=== PATIENT | female | born 2000 | race Caucasian/White ===

== ENCOUNTER 2023-11-20 11:51 | Outpatient (OUT) | payer OTHER, SELFPAY ==
[2023-11-20 12:37] LABS: Thyroid Stimulating Hormone 3.913 uIU/mL (0.358-3.740)
[2023-11-20 13:21] LABS: Free T4 0.96 ng/dL (0.76-1.46)
[2023-11-21 16:14] LABS: Thyroglobulin Antibody <1.0 IU/mL (0.0-0.9); Thyroid Peroxidase (TPO) Ab >600 IU/mL (0-34)
== END 2023-11-20 11:52 | disposition home or self-care (01) ==
LOC: LAB 11:56
PROVIDERS: PCP Family Medicine; Visit Provider Family Medicine
DX: R53.83 Other fatigue (principal)
CPT/HCPCS: 36415; 84439; 84443; 86376; 86800

== ENCOUNTER 2023-12-28 20:27 | Outpatient (REF) | payer OTHER, SELFPAY ==
--- OUTSIDE RECORDS SUMMARY | 2023-12-28 20:33 | XMS_ITS | CCD ---
Author Organization [facility] Care Team Providers Care Agricultural Purchasing Agent Name Role Phone JAYY, DR HYATT Attending Unavailable SEN, DR ARELY Jewell Primary Care Unavailable JAYY, DR HYATT Consulting Unavailable JAYY, DR HYATT Admitting Unavailable SEN, DR ARELY Jewell Primary Care Unavailable JAYY, DR HYATT Attending Unavailable JAYY, DR HYATT Consulting Unavailable JAYY, DR HYATT Admitting Unavailable JAYY, DR HYATT Attending Unavailable SEN, DR ARELY Jewell Primary Care Unavailable JAYY, DR HYATT Consulting Unavailable JAYY, DR HYATT Admitting Unavailable ZIEBER, DR DRAKE Cox Consulting Unavailable PAY, DR MARIE Attending Unavailable PAY, DR MARIE Consulting Unavailable PAY, DR MARIE Admitting Unavailable SEN, DR ARELY Jewell Primary Care Unavailable ALYSSA LAURA Consulting Unavailable Sen, Arely Unavailable Allergies Allergy Classification Reported Allergen(s) Allergy Type Date of Onset Reaction(s) Facility (2 sources) patient allergy list reviewed by nurse or physicia Propensity to adverse reactions 9 Comment:Done [employer] Other (2 sources) Allergies Reconciled Propensity to adverse reactions Unknown [employer] Other Medications Current Medications Medication Drug Class(es) Dates Sig (Normalized) Sig (Original) buPROPion hydrochloride 75 mg oral tablet (7 sources) Aminoketone Start: 12-11-2023 Bupropion Hcl Active 75 MG PO Twice daily 60 December 11, 2023 12:00am administer 6 hours apart Start: 11-17-2023 End: 12-11-2023 take 100 mg by mouth twice daily Bupropion Hcl Discontinued 100 MG PO Twice daily November 17, 2023 1:00am December 11, 2023 9:54am take 1 tablet by rosey th twice daily Wellbutrin SR 100 MG 1 tab Orally bid for 90 days Active Norgestimate-Ethinyl Estradiol (12 sources) Progestin, Estrogen Start: 11-17-2023 take 1 tablet by mouth once daily Norgestimate-Ethinyl Estradiol (Estarylla) 0.25-35 mg-mcg tablet Active 1 TAB PO Daily November 17, 2023 1:00am take 1 tablet by rosey every twenty-four hours Estarylla 0.25-35 MG-MCG 1 tablet Orally Once a day Active lamoTRIgine 100 mg oral tablet (12 sources) Mood Stabilizer, Anti-epileptic Agent Start: 11-17-2023 take 100 mg by mouth once daily Lamotrigine Active 100 MG PO Daily November 17, 2023 1:00am take 1 tablet by rosey once daily in the evening lamoTRIgine 100 MG 1 tablet Orally qpm f or 90 days Active lamoTRIgine 25 m g TAKE 1 TABLET AT BEDTIME Active take 2 tablets by mouth at bedti me LaMICtal 25 MG 2 tablets Orally at bedtime for 30 days Active lurasidone hydrochloride 20 mg oral tablet (1 source) Atypical Antipsychotic take 1 tablet by mouth every twenty-four hours Latuda 20 MG 1 tablet in the evening with food Orally Once a day for 30 days Active phentermine hydrochloride 37.5 mg oral capsule (5 sources) Sympathomimetic Amine Anorectic Start: 04-11-20 take 1 capsule by mouth every twenty-four hours Adipex-P 37.5 MG 1 capsule Orally Once a day for 30 days Apr, Active Start: 03-13-2023 take 1 capsule by [facility] every twenty-four hours Adipex-P 37.5 MG 1 capsule Orally Once a day for 30 days Mar, Active Start: 02-13-2023 take 1 capsule by [facility] every twenty-four hours Adipex-P 37.5 MG 1 capsule Orally Once a day for 30 days Feb, Active Completed/Discontinued Medications Medication Drug Class(es) Dates Sig (Normalized) Sig (Original) Drospirenone-Ethin yl Estradiol (1 source) Progestin, Estrogen Start: 12-26-2020 End: 11-17-2023 Drospirenone-Ethin yl Estradiol (Marie) 3-0.03 mg tablet Discontinued 1 TAB PO Daily December 26, 2020 12:00am November 17, 2023 1:19pm FLUoxetine 20 mg oral tablet (1 source) Serotonin Reuptake Inhibitor Start: 12-26-2020 End: 12-30-2020 take 20 mg by mouth once daily Fluoxetine Discontinued 20 MG PO Daily December 26, 2020 12:00am December 30, 2020 11:41am venlafaxine 75 mg oral tablet (1 source) Serotonin and Norepinephrine Reuptake Inhibitor Start: 12-30-2020 End: 11-17-2023 take 75 mg by mouth at bedtime Venlafaxine Discontinued 75 MG PO Bedtime December 30, 2020 12:00am November 17, 2023 1:19pm Problems Active Problems Problem Classification Problem Date Documented Date Episodic/Chronic Abdominal pain (5 sources) Pelvic and perineal pain; Translations: [Unspecified abdominal pain] Onset: 10-12-2021 Episodic Allergic reactions (3 sources) Urticaria, unspecified; Translations: [Urticaria] Episodic Anxiety disorders (20 sources) Posttraumatic stress disorder; Translations: [Post-traumatic stress disorder, unspecified] Chronic Contraceptive and procreative management (3 sources) Surveillance of contraception; Translations: [Encounter for contraceptive management, unspecified] Episodic Diabetes mellitus without complication (15 sources) Hyperglycemia; Translations: [Other abnormal glucose] 11-17-2023 Episodic Immunizations and screening for infectious disease (11 sources) Encounter for screening for infections with a predominantly sexual mode of transmission; Translations: [Sexually transmitted infectious disease] Onset: 05-09-2022 Episodic Malaise and fatigue (16 sources) Fatigue; Translations: [Other fatigue] 11-17-2023 Episodic Menstrual disorders (5 sources) Excessive and frequent menstruation; Translations: [Excessive or frequent menstruation] Onset: 12-04-2017 Chronic Mood disorders (20 sources) Bipolar disorder; Translations: [Bipolar disorder, unspecified] Onset: 12-04-2017 Chronic Other circulatory disease (3 sources) Elevated blood-pressure reading without diagnosis of hypertension; Translations: [Elevated blood-pressure reading, without diagnosis of hypertension] Episodic Other ear and sense organ disorders (2 sources) Infective otitis externa; Translations: [Unspecified infective otitis externa] Onset: 03-12-2018 Chronic Other ear and sense organ disorders (3 sources) Otitis externa of left ear; Translations: [Unspecified otitis externa, left ear] Chronic Other female genital disorders (5 sources) Other specified noninflammatory disorders of vagina; Translations: [OTH SPEC NONINFLAMMATORY D/O VAGINA] Onset: 05-10-2022 Episodic Other female genital disorders (3 sources) Noninflammatory disorder of the vagina; Translations: [Other specified noninflammatory disorders of vagina] Episodic Other nutritional; endocrine; and metabolic disorders (20 sources) Body mass index 40+ - severely obese; Translations: [Body mass index (BMI) 45.0-49.9, adult] Chronic Other nutritional; endocrine; and metabolic disorders (11 sources) Severe obesity; Translations: [Morbid (severe) obesity due to excess calories] Chronic Other nutritional; endocrine; and metabolic disorders (3 sources) Morbid (severe) obesity due to excess calories Chronic Other nutritional; endocrine; and metabolic disorders (1 source) Body mass index (BMI) 45.0-49.9, adult Chronic Other nutritional; endocrine; and metabolic disorders (1 source) Body mass index (BMI) 40.0-44.9, adult Chronic Other nutritional; endocrine; and metabolic disorders (3 sources) Obese class II; Translations: [Body mass index (BMI) 38.0-38.9, adult] Chronic Other nutritional; endocrine; and metabolic disorders (7 sources) Body mass index 30+ - obesity; Translations: [Body mass index (BMI) 39.0-39.9, adult] Chronic Other nutritional; endocrine; and metabolic disorders (8 sources) Obesity caused by energy imbalance; Translations: [Other obesity due to excess calories] 11-17-2023 Chronic Other nutritional; endocrine; and metabolic disorders (2 sources) Other obesity due to excess calories Chronic Other nutritional; endocrine; and metabolic disorders (2 sources) Body mass index (BMI) 39.0-39.9, adult Chronic Other screening for suspected conditions (not mental disorders or infectious disease) (1 source) Thyroid function tests abnormal; Translations: [Other specified abnormal findings of blood chemistry] 11-29-2023 Episodic Other upper respiratory infections (9 sources) Acute maxillary sinusitis; Translations: [Acute recurrent maxillary sinusitis] Onset: 01-13-2015 Episodic Residual codes; unclassified (10 sources) Insomnia; Translations: [Insomnia, unspecified] 11-17-2023 Episodic Residual codes; unclassified (1 source) Insomnia, unspecified Episodic Substance-related disorders (1 source) Nicotine dependence, cigarettes, uncomplicated; Translations: [NICOTINE DEPEND CIGARETTES UNCOMP] Onset: 10-14-2021 Chronic Past or Other Problems Problem Classification Problem Date Documented Da te Episodic/Chronic Conditions associated with dizziness or vertigo (3 sources) Dizziness and giddiness; Translations: [Dizziness and giddiness] Onset: 01-13-2015 Episodic Nausea and vomiting (1 source) Nausea with vomiting, unspecified; Translations: [NAUSEA WITH VOMITING UNSPECIFIED] Onset: 10-14-2021 Episodic Other aftercare (1 source) Other group home (current) drug therapy; Translations: [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 THERAPY] Onset: 10-14-2021 Episodic Other ear and sense organ disorders (2 sources) Acute otitis externa; Translations: [Acute swimmers' ear] Onset: 04-07-2017 Episodic Other gastrointestinal disorders (1 source) Diarrhea, unspecified; Translations: [DIARRHEA UNSPECIFIED] Onset: 10-14-2021 Episodic Other skin disorders (3 sources) Generalized hyperhidrosis; Translations: [Generalized hyperhidrosis] Onset: 03-26-2019 Episodic Results Test Name Value Interpretation Reference Range Facility Laboratory - Chemistry and C hemistry - challengeon 11-20-2023 Free T4 [Mass/Vol] 0.96 ng/dL 0.76-1.46 [facility] TSH Qn 3.913 m[IU]/L 0.358-3.740 [facility] Serum or plasma thyroperoxid ase antibody assay (units/volume)on 11-20-2023 TPO Ab Qn [IU]/mL 0-34 [facility] Thyroglobulin [Mass/volume] in Serum or Plasmaon 11-20-2023 Thyroglobulin [Mass/Vol] <1.0 [IU]/mL 0.0-0.9 [facility] Comment on above: Thyroglobulin Antibo dy measured by Clemente CoulterMethodologyIt should be noted that the presence of thyroglobulinantibodies may not be pathogenic nor diagnostic, especiallyat very low levels. The assay black top spreader machine operator has found thatfour percent of individuals without evidence of thyroiddisease or autoimmunity will have positive TgAb levels upto 4 IU/mL.Performed at: [address], [place], [place] [id number] Director: Mark Brown PhD, Phone: [phone] CHLAMYDIA/GONOCOCCUS CELE ( AB/URINE/PAPon 09-01-2022 Chlamydia trachomatis, CELE Negative Normal Negative [facility] Comment on above: Performed By: #### C T/NGNA #### [facility] [address] [address] [address] Anthony Robert Neisseria gonorrhoeae, CELE Negative Normal Negative [facility] Comment on above: Performed By: #### C T/NGNA #### [facility] [address] [address] [address] Anthony Robert VAGINITIS/VAGINOSIS DNA PROB Randall 08-31-2022 Glendy species Negative Normal Negative [facility] Comment on above: Performed By: #### V AGINT #### [facility] [address] [place] [address] Dr. Anthony Robert Gardnerella vaginalis Negative Normal Negative [facility] Comment on above: Performed By: #### V AGINT #### [facility] [address] [address] [address] Anthony Robert Trichomonas vaginalis Negative Normal Negative [facility] Comment on above: Performed By: #### V AGINT #### [facility] [address] [place] [address] Dr. Anthony Robert US PELVIS AND TRANSVAGon US PELVIS AND TRANSVAG EXAMINATION: US PELVIS AND TRANSVAG HISTORY: Pelvic and perineal pain for 4 months COMPARISON: No relevant comparison available. TECHNIQUE: Transabdominal and transvaginal sonographic examination. FINDINGS: UTERUS: Normal size and appearance. Uterus size: 6.6 x 3.0 x 3.4 cm ENDOMETRIUM: Normal homogeneous appearance. Endometrial thickness: 2 mm RIGHT OVARY: Normal size and appearance. Duplex Doppler demonstrates normal waveform and flow; resistive index 0.5. Ovary size: 2.0 x 1.3 x 1.4 cm LEFT OVARY: Normal size and appearance. Duplex Doppler demonstrates normal waveform and flow; resistive index 0.6. Ovary size: 1.8 x 2.8 x 1.8 cm CUL-DE-SAC: Unremarkable. No significant free fluid. BLADDER: Unremarkable. OTHER: None. IMPRESSION: 1. Normal pelvic ultrasound. No suspicious findings to account for patient's symptoms. Electronically authenticated by: DRAKE WOODY Date: 2022-08-29 22:46 Normal [facility] CHLAMYDIA/GONOCOCCUS CELE (SW AB/URINE/PAPon 05-12-2022 Chlamydia trachomatis, CELE Negative Normal Negative [facility] Comment on above: Performed By: #### C T/NGNA #### [facility] [address] [place] [address] Dr. Anthony Robert Neisseria gonorrhoeae, CELE Negative Normal Negative [facility] Comment on above: Performed By: #### C T/NGNA #### [facility] [address] [place] [address] Dr. Anthony Robert VAGINITIS/VAGINOSIS DNA PROB Randall 05-11-2022 Glendy species Negative Normal Negative [facility] Comment on above: Performed By: #### V AGINT #### [facility] [address] [place] [address] Dr. Anthony Robert Gardnerella vaginalis Negative Normal Negative [facility] Comment on above: Performed By: #### V AGINT #### [facility] [address] [place] [address] Dr. Anthony Robert Trichomonas vaginalis Negative Normal Negative [facility] Comment on above: Performed By: #### V AGINT #### [facility] [address] [place] [address] Dr. Anthony Robert CBC AUTO DIFFon 10-12-2021 BASO # 0.0 103/ul Normal 0.0-0.1 [facility] Comment on above: Performed By: #### C BC #### [facility] [address] [place] [address] Dr. Anthony Robert Basophils/100 WBC (Bld) 0.3 % Normal 0.2-2.0 [facility] Comment on above: Performed By: #### C BC #### [facility] [address] [place] [address] Dr. Anthony Robert EO # 0.2 103/ul Normal 0.0-0.7 [facility] Comment on above: Performed By: #### C BC #### [facility] [address] [place] [address] Dr. Anthony Robert Eosinophils/100 WBC (Bld) 1.9 % Normal 0.9-7.0 [facility] Comment on above: Performed By: #### C BC #### [facility] [address] [place] [address] Dr. Anthony Robert Erythrocyte distribution width (RBC) [Ratio] 12.3 % Normal 11.0-15.0 [facility] Comment on above: Performed By: #### C BC #### [facility] [address] [place] [address] Dr. Anthony Robert Hematocrit (Bld) [Volume fraction] 45.2 % Normal 36.0-48.0 [facility] Comment on above: Performed By: #### C BC #### [facility] [address] [place] [address] Dr. Anthony Robert Hemoglobin (Bld) [Mass/Vol] 14.7 g/dL Normal 12.0-16.0 [facility] Comment on above: Performed By: #### C BC #### [facility] [address] [place] [address] Dr. Anthony Robert IG # 0.03 10e3/ul Normal 0.00-0.03 [facility] Comment on above: Performed By: #### C BC #### [facility] [address] [place] [address] Dr. Anthony Robert IG % 0.3 % Normal 0.0-0.5 [facility] Comment on above: Performed By: #### C BC #### [facility] [address] [place] [address] Dr. Anthony Robert LYMPH # 4.0 103/ul Critically high 1.2-3.8 [facility] Comment on above: Performed By: #### C BC #### [facility] [address] [place] [address] Dr. Anthony Robert Lymphocytes/100 WBC (Bld) 33.6 % Normal 20.5-60.0 [facility] Comment on above: Performed By: #### C BC #### [facility] [address] [place] [address] Dr. Anthony Robert MANUAL DIFF REQ NO Normal [facility] Comment on above: Performed By: #### C BC #### [facility] [address] [place] [address] Dr. Anthony Robert MCH (RBC) [Entitic mass] 27.8 pg Normal 26.7-34.0 [facility] Comment on above: Performed By: #### C BC #### [facility] [address] [place] [address] Dr. Anthony Robert MCHC (RBC) [Mass/Vol] 32.5 g/dL Normal 29.9-35.2 [facility] Comment on above: Performed By: #### C BC #### [facility] [address] [place] [address] Dr. Anthony Robert MCV (RBC) [Entitic vol] 85.6 fL Normal 81.0-99.0 [facility] Comment on above: Performed By: #### C BC #### [facility] [address] [place] [address] Dr. Anthony Robert MONO # 0.6 103/ul Normal 0.3-0.8 [facility] Comment on above: Performed By: #### C BC #### [facility] [address] [place] [address] Dr. Anthony Robert Monocytes/100 WBC (Bld) 5.2 % Normal 1.7-12.0 [facility] Comment on above: Performed By: #### C BC #### [facility] [address] [place] [address] Dr. Anthony Robert NEUT # 6.9 103/ul Critically high 1.4-6.5 [facility] Comment on above: Performed By: #### C BC #### [facility] [address] [place] [address] Dr. Anthony Robert Neutrophils/100 WBC (Bld) 58.7 % Normal 43.0-75.0 [facility] Comment on above: Performed By: #### C BC #### [facility] [address] [place] [address] Dr. Anthony Robert Platelet mean volume (Bld) [Entitic vol] 11.7 fL Normal 9.5-13.5 [facility] Comment on above: Performed By: #### C BC #### [facility] [address] [place] [address] Dr. Anthony Robert PLT 281 103/ul Normal 150-450 [facility] Comment on above: Performed By: #### C BC #### [facility] [address] [place] [address] Dr. Anthony Robert RBC 5.28 106/ul Normal 4.20-5.40 [facility] Comment on above: Performed By: #### C BC #### [facility] [address] [place] [address] Dr. Anthony Robert WBC 11.8 103/ul Critically high 4.0-11.0 [facility] Comment on above: Performed By: #### C BC #### [facility] [address] [place] [address] Dr. Anthony Robert ER URINE PROFILEon 2 Bilirubin Ql (U) Negative Normal NEGATIVE [facility] Comment on above: Performed By: #### E RUR #### [facility] [address] [place] [address] Dr. Anthony Robert Clarity (U) CLEAR Normal CLEAR [facility] Comment on above: Performed By: #### E RUR #### [facility] [address] [place] [address] Dr. Anthony Robert Color (U) YELLOW Normal YELLOW [facility] Comment on above: Performed By: #### E RUR #### [facility] [address] [place] [address] Dr. Anthony ROTHD A micrscopic examina tion will be performed if indicated. Normal [facility] Comment on above: Performed By: #### E RUR #### [facility] [address] [place] [address] Dr. Anthony Robert Glucose Ql (U) Negative Normal NEGATIVE [facility] Comment on above: Performed By: #### E RUR #### [facility] [address] [place] [address] Dr. Anthony Robert Hemoglobin Ql (U) Negative Normal NEGATIVE [facility] Comment on above: Performed By: #### E RUR #### [facility] [address] [place] [address] Dr. Anthony Robert Ketones Ql (U) Negative Normal NEGATIVE [facility] Comment on above: Performed By: #### E RUR #### [facility] [address] [place] [address] Dr. Anthony Robert LEUKOCYTES Negative Normal NEGATIVE [facility] Comment on above: Performed By: #### E RUR #### [facility] [address] [place] [address] Dr. Anthony Robert Nitrite Ql (U) Negative Normal NEGATIVE [facility] Comment on above: Performed By: #### E RUR #### [facility] [address] [place] [address] Dr. Anthony Robert pH (U) 6.0 [pH] Normal 5-9 [facility] Comment on above: Performed By: #### E RUR #### [facility] [address] [place] [address] Dr. Anthony Robert SPEC GRAVITY >=1.030 Abnormal 1.005-<=1.02 5 [facility] Comment on above: Performed By: #### E RUR #### [facility] [address] [place] [address] Dr. Anthony Robert UA PROTEIN Negative Normal NEGATIVE/ TRACE [facility] Comment on above: Performed By: #### E RUR #### [facility] [address] [place] [address] Dr. Anthony Robert UR MICRO IND NOT INDICATED Normal [facility] Comment on above: Performed By: #### E RUR #### [facility] [address] [place] [address] Dr. Anthony Robert Urobilinogen Qn (U) 0.2 {Chaz'U}/dL Normal 0.2 - 1. 0 [facility] Comment on above: Performed By: #### E RUR #### [facility] [address] [address] [address] Anthony Robert LIPASEon 10-12-2021 Lipase [Catalytic activity/Vol] 63.0 U/L Normal 23.0-300.0 [facility] Comment on above: Performed By: #### L IPA, CMP #### [facility] [address] [address] [address] Anthony Robert PREG HCG QUALon 10-12-2021 , QUAL Negative Normal NEGATIVE [facility] Comment on above: Performed By: #### P REG #### [facility] [address] [place] [address] Dr. Anthony Robert PROF 14(COMP METB)on 022 Albumin [Mass/Vol] 4.0 g/dL Normal 3.5-5.0 [facility] Comment on above: Performed By: #### L IPA, CMP ####[facility] [id number] [address]Dr. Anthony Robert Albumin/Globulin [Mass ratio] 1.0 {ratio} Normal [facility] Comment on above: Performed By: #### L IPA, CMP ####[facility] [id number] [address]Dr. Anthony Robert ALP [Catalytic activity/Vol] 81 U/L Normal 38-126 [facility] Comment on above: Performed By: #### L IPA, CMP ####[facility] [id number] [address]Dr. nAthony Robert ALT [Catalytic activity/Vol] 43 U/L Normal 9-52 [facility] Comment on above: Performed By: #### L IPA, CMP ####[facility] [id number] [address]Dr. Anthony Robert Anion gap [Moles/Vol] 14.6 mmol/L Normal [facility] Comment on above: Performed By: #### L IPA, CMP ####[facility] [id number] [address]Dr. Anthony Robert AST [Catalytic activity/Vol] 19 U/L Normal 14-36 [facility] Comment on above: Performed By: #### L IPA, CMP ####[facility] [id number] [place], [place] [address]Dr. Anthony Robert Bilirubin [Mass/Vol] 0.4 mg/dL Normal 0.2-1.3 [facility] Comment on above: Performed By: #### L IPA, CMP ####[facility] [id number] [place], [place] [address]Dr. Anthony Robert Calcium [Mass/Vol] 9.7 mg/dL Normal 8.4-10.2 [facility] Comment on above: Performed By: #### L IPA, CMP ####[facility] B[address] [place], [place] [address]Dr. Anthony Robert Chloride [Moles/Vol] 101 mmol/L Normal 98-107 [facility] Comment on above: Performed By: #### L IPA, CMP ####[facility] Rt[address] [place], [place] [address]Dr. Anthony Robert CO2 [Moles/Vol] 23.7 mmol/L Normal 22.0-30.0 [facility] Comment on above: Performed By: #### L IPA, CMP ####[facility] [address] [place], [place] [address]Dr. Anthony Robert Creatinine [Mass/Vol] 0.85 mg/dL Normal 0.52-1.04 [facility] Comment on above: Performed By: #### L IPA, CMP ####[facility] Wlibeq[address]wc[address] [place], [place] [address]Dr. Anthony Robert EGFR-AF BHUTANESE >60 Normal >=60 [facility] Comment on above: Performed By: #### L IPA, CMP ####[facility] [address] [place], [place] [address]Dr. Anthony Robert EGFR-NON AF BHUTANESE >60 Normal >=60 [facility] Comment on above: Performed By: #### L IPA, CMP ####[facility] Nwtldtal[address] [place], [place] [address]Dr. Anthony Robert Globulin (S) [Mass/Vol] 4.0 g/dL Normal [facility] Comment on above: Performed By: #### L IPA, CMP ####[facility] Ze[address] [place], [place] [address]Dr. Anthony Robert Glucose [Mass/Vol] 96 mg/dL Normal 74-106 [facility] Comment on above: Performed By: #### L IPA, CMP ####[facility] Mrwhjhv[address] [place], [place] [address]Dr. Anthony Robert Potassium [Moles/Vol] 4.3 mmol/L Normal 3.4-5.0 [facility] Comment on above: Performed By: #### L IPA, CMP ####[facility] T[address] [place], [place] [address]Dr. Malikaelle Robert Protein [Mass/Vol] 8.0 g/dL Normal 6.1-8.2 [facility] Comment on above: Performed By: #### L IPA, CMP ####[facility] Q[address] [place], [place] [address]Dr. Anthony Robert Sodium [Moles/Vol] 135 mmol/L Critically low 137-145 [facility] Comment on above: Performed By: #### L IPA, CMP ####[facility] [address] [place], [place] [address]Dr. Anthony Robert Urea nitrogen [Mass/Vol] 12.0 mg/dL Normal 6.4-19.3 [facility] Comment on above: Performed By: #### L IPA, CMP ####[facility] Q[address] [place], [place] [address]Dr. Malikaelle Robert Urea nitrogen/Creatinine [Mass ratio] 14.1 mg/mg Normal [facility] Comment on above: Performed By: #### L IPA, CMP ####[facility] Li[address]os[address] [place], [place] [address]Dr. Anthony Jakob XR KUB 1 VIEWon 10-12-2021 XR KUB 1 VIEW EXAM: XR KUB 1 VIEW HISTORY: Diarrhea and bilateral lower quadrant abdominal pain for one day. COMPARISON: None. TECHNIQUE: Single AP supine view of the abdomen with 2 images, superior and inferior. FINDINGS: Supine technique but no gross free air. Nonobstructing bowel gas pattern with mild to moderate retained stool in the colon. No definite renal stones. No acute bony process. IMPRESSION: No bowel obstruction or free air. Scattered areas of retained stool. Electronically authenticated by: ALYSSA LAURA Date: 2021-10-12 18:28 Normal [facility] ECG 12 lead ECGon 12-27-2020 ECG 12 lead ECG [facility] [place] [address] Electrocardiograph Report Signed Patient: Alondra Ruiz MR#: [id number] : 2000 Acct:[id number] Age/Sex: 20 / F ADM Date: 12/26/20 Loc: Room: [address] [place] [address] Type: ADM IN Attending Dr: Ishan Fischer MD Ordering Provider: Donovan Fischer MD Date of Service: 12/27/20 ECG/ECG 12 lead ECG: PROZAC overdose Copies to: Test Reason : Blood Pressure : / mmHG Vent. Rate : 065 BPM Atrial Rate : 065 BPM P-R Int : 188 ms QRS Dur : 088 ms QT Int : 422 ms P-R-T Axes : 036 088 003 degrees QTc Int : 438 ms Normal sinus rhythm Possible Inferior infarct , age undetermined -minimal criteria Abnormal ECG No previous ECGs available Confirmed by FRANK CALDERÓN DO ([id number]) on 12/27/2020 5:09:44 PM Referred By: Electronically Signed By:FRANK CALDERÓN DO Transcribed By: MUS Dictated By: Frank Calderón DO 12/27/20 0751 Signed By: 12/27/20 170 Normal [facility] Lipid Panelon 12-27-2020 Cholesterol [Mass/Vol] 178 mg/dL Normal 140-200 [facility] Comment on above: Result Comment: Chol less than 200 mg/dl low risk Chol 201-239 mg/dl borderline risk Chol 240 mg/dl and greater high risk Performed By: #### L IPID, TSH3 wRFLX, [id number] #### [facility] [address] Cholesterol in HDL [Mass/Vol] 47 mg/dL Normal 35-85 [facility] Comment on above: Result Comment: HDL CHOL ATP-III CLASSIFICATION Cardiovascular Risk HDL > or equal to 60 mg/dL LOW HDL < 40 mg/dL HIGH Performed By: #### L IPID, TSH3 wRFLX, [id number] #### [facility] [address] Cholesterol.total/C holesterol in HDL [Mass ratio] 3.8 {ratio} Normal <5.0 [facility] Comment on above: Performed By: #### L IPID, TSH3 wRFLX, [id number] #### [address] LDL Cholesterol,Calcula flaco 110 mg/dL High 0-100 [facility] Comment on above: Result Comment: LDL ATP III CLASSIFICATION LDL less than 100 mg/dL Optimal LDL 100-129 mg/dL Near or above optimal LDL 130-159 mg/dL Borderline high LDL 160-189 mg/dL High LDL greater than 189 mg/dL Very high Performed By: #### L IPID, TSH3 wRFLX, [id number] #### [address] Triglyceride w/Reflex 105 mg/dL Normal 35-149 [facility] Comment on above: Result Comment: TRIG ATP III CLASSIFICATION TRIG less than 150 mg/dL Normal TRIG 150-199 mg/dL Borderline high TRIG 200-500 mg/dL High TRIG greater than 500 mg/dL Very high Standard traceable to the Center for Disease Conrtrol and Prevention (CDC) test method. Performed By: #### L IPID, TSH3 wRFLX, [id number] #### [address] VLDL CHOLESTEROL 21 mg/dL Normal [facility] Comment on above: Performed By: #### L IPID, TSH3 wRFLX, [id number] #### [address] Thyroid Stim Hormone w/Rflxo n 12-27-2020 Thyroid Stim Hormone w/Rflx 2.68 u[iU]/mL Normal 0.45-5.33 [facility] Comment on above: Performed By: #### L IPID, TSH3 wRFLX, [id number] #### [facility] [address] [place] [address] [facility] Vitamin D 25 Hydroxy Totalon 12-27-2020 Vitamin D 25 Hydroxy Total 27.7 ng/mL Low 30-100 [facility] Comment on above: Result Comment: NANCY MIN D STATUS 25(OH)VITAMIN D RANGE (ng/mL) Deficient <20 Insufficient 20 to <30 Sufficient 30 to 100 Reference: Cierra MF,Emma CARIAS, Julianne MACIAS, et al. Evaluation,treatment, and prevention of vitamin D deficiency; an Endocrine Society clinical practice guideline. JCEM. 2010; 96(7):1911-30. PERFORMED BY: [place] [id number] PATHOLOGIST SLASHER OPERATOR RYAN SCHREIBER M.D. Performed By: #### L IPID, TSH3 wRFLX, [id number] #### [facility] [address] [place] [address] [facility] Vital Signs Date Time Vital Sign Value Performing Clinician Facility 12-11-2023 09:38-0400 Body height 167.64 cm [facility] 12-11-2023 09:38-0400 Body mass index (BMI) [Ratio] 37.5 kg/m2 [facility] 12-11-2023 09:38-0400 Body weight 105.46 kg [facility] 12-11-2023 09:38-0400 Diastolic blood pressure 82 mm[Hg] [facility] 12-11-2023 09:38-0400 Heart rate 81 /min [facility] 12-11-2023 09:38-0400 Systolic blood pressure 123 mm[Hg] [facility] 11-20-2023 11:01-0400 Body height 167.64 cm [facility] 11-20-2023 11:01-0400 Body mass index (BMI) [Ratio] 37.6 kg/m2 [facility] 11-20-2023 11:01-0400 Body weight 105.8 kg [facility] 11-20-2023 11:01-0400 Diastolic blood pressure 88 mm[Hg] [facility] 11-20-2023 11:01-0400 Heart rate 88 /min [facility] 11-20-2023 11:01-0400 SaO2% (BldA) [Mass fraction] 99 % [facility] 11-20-2023 11:01-0400 Systolic blood pressure 126 mm[Hg] [facility] 08-07-2023 09:15-0500 Body height 167.64 cm Arely Sen Other [facility] [employer] Other 08-07-2023 09:15-0500 Body mass index (BMI) [Ratio] 36.7 kg/m2 Arely Sen Other [employer] Other 08-07-2023 09:15-0500 Body weight 103.15 kg Arely Sen Other [employer] Other 08-07-2023 09:15-0500 Diastolic blood pressure 89 mm[Hg] Arely Sen Other [employer] Other 08-07-2023 09:15-0500 Systolic blood pressure 134 mm[Hg] Arely Sen Other [employer] Other 05-08-2023 08:45-0400 Body height 167.64 cm Arely Sen Other [employer] Other 05-08-2023 08:45-0400 Body mass index (BMI) [Ratio] 39.22 kg/m2 Arely Sen Other [employer] Other 05-08-2023 08:45-0400 Body weight 110.22 kg Arely Sen Other [employer] Other 05-08-2023 08:45-0400 Diastolic blood pressure 89 mm[Hg] Arely Sen Other [employer] Other 05-08-2023 08:45-0400 Systolic blood pressure 133 mm[Hg] Arely Sen Other [employer] Other 04-17-2023 11:00-0400 Body height 167.64 cm Arely Sen Other [employer] Other 04-17-2023 11:00-0400 Body mass index (BMI) [Ratio] 39.7 kg/m2 Arely Sen Other [employer] Other 04-17-2023 11:00-0400 Body weight 111.59 kg Arely Sen Other [employer] Other 04-17-2023 11:00-0400 Diastolic blood pressure 94 mm[Hg] Arely Sen Other [employer] Other 04-17-2023 11:00-0400 Systolic blood pressure 134 mm[Hg] Arely Sen Other [employer] Other 03-13-2023 10:00-0400 Body height 160.66 cm Arely Sen Other [employer] Other 03-13-2023 10:00-0400 Body mass index (BMI) [Ratio] 44.46 kg/m2 Arely Sen Other [employer] Other 03-13-2023 10:00-0400 Body weight 114.76 kg Arely Sen Other [employer] Other 03-13-2023 10:00-0400 Diastolic blood pressure 91 mm[Hg] Arely Sen Other [employer] Other 03-13-2023 10:00-0400 Systolic blood pressure 127 mm[Hg] Arely Sen Other [employer] Other 02-13-2023 10:00-0400 Body height 160.66 cm Arely Sen Other [employer] Other 02-13-2023 10:00-0400 Body mass index (BMI) [Ratio] 47.09 kg/m2 Arely Sen Other [employer] Other 02-13-2023 10:00-0400 Body weight 121.56 kg Arely Sen Other [employer] Other 02-13-2023 10:00-0400 Diastolic blood pressure 79 mm[Hg] Arely Sen Other [employer] Other 02-13-2023 10:00-0400 Systolic blood pressure 134 mm[Hg] Arely Sen Other [employer] Other Encounters Encounter Date Encounter Type Care Provider Facility Start: 12-11-2023 End: 12-11-2023 ambulatory [facility] Work Phone: Start: 12-11-2023 End: 12-11-2023 Patient encounter procedure [facility] Work Phone: Start: 11-20-2023 End: 11-20-2023 Patient encounter procedure [facility] Work Phone: Start: 10-17-2023 End: 10-17-2023 ambulatory Arely Sen Other [employer] Other Start: 10-17-2023 Telephone encounter Arely Sen [facility] Start: 10-16-2023 End: 10-16-2023 ambulatory Arely Sen Other [employer] Other Start: 10-16-2023 Telephone encounter Arely Sen [facility] Start: 09-13-2023 End: 09-13-2023 ambulatory Arely Sen Other [employer] Other Start: 09-13-2023 Telephone encounter Arely Sen [facility] Start: 08-08-2023 End: 08-08-2023 ambulatory Arely Sen Other [employer] Other Start: 08-08-2023 Telephone encounter Arely Sen [facility] Start: 08-07-2023 End: 08-07-2023 ambulatory Arely Sen Other [employer] Other Start: 08-07-2023 Office outpatient vi sit 15 minutes Arely Sen [facility] Start: 05-08-2023 End: 05-08-2023 ambulatory Arely Sen Other [employer] Other Start: 05-08-2023 Office outpatient vi sit 15 minutes Arely Sen [facility] Start: 04-17-2023 End: 04-17-2023 ambulatory Arely Sen Other [employer] Other Start: 04-17-2023 Office outpatient vi sit 15 minutes Arely Sen [facility] Start: 04-10-2023 End: 04-10-2023 ambulatory Arely Sen Other [employer] Other Start: 04-10-2023 Telephone encounter Arely Sen [employer] Start: 03-13-2023 End: 03-13-2023 ambulatory Arely Carmen Other [employer] Other Start: 03-13-2023 Office outpatient vi sit 15 minutes Arely Sen [facility] Start: 02-13-2023 End: 02-13-2023 ambulatory Arely Sen Other [employer] Other Start: 02-13-2023 Office outpatient vi sit 15 minutes Arely Sen [facility] Start: 08-29-2022 End: 08-29-[address] ARELY SEN Facility:[facility] Start: 08-29-2022 End: 08-30-[address] OLENA HOPE Facility:[facility] Start: 07-06-2022 Child [facility] medical examination Arely Sen Other [employer] Other Start: 05-09-2022 End: 05-09-[address] OLENA HOPE Facility:[facility] Start: 10-12-2021 End: 10-12-[address] FRANK SUNG Facility:[facility] Start: 09-09-2019 Well child visit Arely Sen Other [employer] Other Plan of Treatment Date Care Activity Detail Author Start: 12-11-2023 Patient referral [facility] Work Phone: Patient referral [facility] Work Phone: [facility] Immunizations Immunization Date Immunization Notes Care Provider [facility] 03-24-2020 meningococcal oligosaccharide (groups A, C, Y and W-135) diphtheria toxoid conjugate vaccine (MCV4O) Arely Sen Other [facility] Payers Date Payer Category Payer Unknown [id number] [id number] [id number] 2002 Unknown [id number] 2.16.84 [id number] 2002 Unknown [id number] [id number] [id number] 2002 Unknown [id number] [id number] [id number] 1959 Unknown [id number] Self-pay Self Pay [id number] Social History Date Type Detail Facility Unknown if ever smoked [employer] Other Sex Assigned At Sex Assigned At Bir th [employer] Other Start: 08-07-2023 Tobacco smoking status NHIS Never smoked tobacco (finding) [facility] Start: 2000 Sex Assigned At Female F [facility] Clinical Notes 02-13-2023 to 10-17-2023 Note Date & Type Note Facility 10-17-2023 Evaluation note Encounter Date Diagnosis Assessment Notes Oct, Anxiety and depression (ICD-10 - F41.9) [facility] Other 02-05-2024 Evaluation note* Encounter Date Diagnosis Assessment Notes Treatment Notes Treatment Clinical Notes Oct, Anxiety and depression (ICD-10 - F41.9) [facility] Other 01-03-2024 Evaluation note* Encounter Date Diagnosis Assessment Notes Treatment Notes Treatment Clinical Notes Sep, Anxiety and depression (ICD-10 - F41.9) [facility] Other 11-28-2023 Evaluation note* Encounter Date Diagnosis Assessment Notes Treatment Notes Treatment Clinical Notes Jul, Bipolar disease, chronic (ICD-10 - F31.9) [facility] Other 11-27-2023 Evaluation note* Encounter Date Diagnosis Assessment Notes Treatment Notes Treatment Clinical Notes Jul, Anxiety and depression (ICD-10 - F41.9) Alondra requests to start wellbutren for BR[place], smoking and SAD. Start bid, lowest dose. Call in 1 month if no improvement on this dose. Jul, Bipolar disease, chronic (ICD-10 - F31.9) Pt agrees to increase lamictal to help with insomnia and overall mood issues. Call if any adverse effects. [employer] Other 08-28-2023 Evaluation note* Encounter Date Diagnosis Assessment Notes Treatment Notes Treatment Clinical Notes Apr, Other obesity due to excess calories (ICD-10 - E66.09) Good progress over 3-4 months. Discussed the diet and exercise changes she has made. Due to insomnia, which has been a problem for her in the past, would refrain from adipex and continue healthy diet and exercise program. Apr, Body mass index [BMI] 39.0-39.9, adult (ICD-10 - Z68.39) Apr, Anxiety and depression (ICD-10 - F41.9) Stable on present meds. Referral pending to . Apr, Insomnia, unspecified type (ICD-10 - G47.00) Several causes. Discussed limiting screen time, regular bedtime and healthy sleep habits. D/c adipex. [employer] Other 08-07-2023 Evaluation note* Encounter Date Diagnosis Assessment Notes Treatment Notes Treatment Clinical Notes Apr, Other obesity due to excess calories (ICD-10 - E66.09) Patient has clearly made a good nicole effort for several months on her own to lose weight with little success. Pt to start Adipex daily. Medication is a stimulant. May cause you to be jittery or constipated. Take in the morning, may also take stool softener daily as needed. Continue to eat a healthy well balanced diet and continue work-out regimine. Pt aware that this is not a cure for obesity but a tool used to help them during their weight loss plateau. Pt aware that they need to continue to work hard at weight loss or the weight will be regained. Side effects discussed and understood. Pt education printed and discussed. Pt notified of prescribing schedule with 30 day dispensing, no refills, for up to 12 weeks, with a 6 month break in-between treatments. Id SOB, CP, mood changes, tachycardia, HTN, headaches, blurred vision occur, go to ER and Follow-up with me immediately. Apr, Body mass index [BMI] 39.0-39.9, adult (ICD-10 - Z68.39) Apr, Bipolar disease, chronic (ICD-10 - F31.9) Pt states she is doing fine since d/c Latuda at last OV. Feels she is stable with the mood stablizer. She is hopeful she will continue w weight loss since d/c latuda as well. [employer] Other 07-31-2023 Evaluation note* Encounter Date Diagnosis Assessment Notes Treatment Notes Treatment Clinical Notes Mar, Morbid (severe) obesity due to excess calories (ICD-10 - E66.01) [employer] Other 07-03-2023 Evaluation note* Encounter Date Diagnosis Assessment Notes Treatment Notes Treatment Clinical Notes Mar, Morbid (severe) obesity due to excess calories (ICD-10 - E66.01) Patient has clearly made a good nicole effort for several months on her own to lose weight with little success. Pt to continue Adipex daily for third month. Medication is a stimulant. May cause you to be jittery or constipated. Take in the morning, may also take stool softener daily as needed. Continue to eat a healthy well balanced diet and continue work-up regimine. Pt aware that this is not a cure for obesity but a tool used to help them during their weight loss plateau. Pt aware that they need to continue to work hard at weight loss or the weight will be regained. Side effects discussed and understood. Any onset of SOB, CP, mood changes, tachycardia, HTN, headaches, blurred vision occur, go to ER and Follow-up with our office immediately. Mar, Body mass index [BMI] 40.0-44.9, adult (ICD-10 - Z68.41) Mar, Anxiety and depression (ICD-10 - F41.9) Pt understands latuda that could cause weight gain. On lowest dose. would like to stop it and followup if issues related to stopping that. [employer] Other 06-05-2023 Evaluation note* Encounter Date Diagnosis Assessment Notes Treatment Notes Treatment Clinical Notes Feb, Bipolar disease, chronic (ICD-10 - F31.9) Refilled present meds and referal to [facility]. Feb, PTSD (post-traumatic stress disorder) (ICD-10 - F43.10) as above Feb, Morbid (severe) obesity due to excess calories (ICD-10 - E66.01) Patient has clearly made a good nicole effort for several months on her own to lose weight with little success. Pt to start Adipex daily. Medication is a stimulant. May cause you to be jittery or constipated. Take in the morning, may also take stool softener daily as needed. Continue to eat a healthy well balanced diet and continue work-out regimine. Pt aware that this is not a cure for obesity but a tool used to help them during their weight loss plateau. Pt aware that they need to continue to work hard at weight loss or the weight will be regained. Side effects discussed and understood. Pt education printed and discussed. Pt notified of prescribing schedule with 30 day dispensing, no refills, for up to 12 weeks, with a 6 month break in-between treatments. Id SOB, CP, mood changes, tachycardia, HTN, headaches, blurred vision occur, go to ER and Follow-up with me immediately Cautioned about possiblity of stimulant increasing possible manic symptoms. Alondra understands and agrees to proceed w med. Feb, Body mass index [BMI] 45.0-49.9, adult (ICD-10 - Z68.42) [employer] Other [facility] [employer] Other Evaluation note* Diagnosis Onset Date Resolution Status Fatigue acute Anxiety and depression acute Bipolar disease, chronic acu te [facility] Work Phone: History general Narrative - Reported* Type Description Date Medical History Fatigue Medical History Elevated glucose Medical History Anxiety and depression Surgical History TONSILLECTOMY AND ADENOIDECTOMY Hospitalization History SEE SURGICAL HX [employer] [facility] [employer] Other Hospital Discharge instructionsAmbulatory Orders* Referral to Psychiatry Time Frame: 12/11/23, Location: None Selected [facility] Work Phone: Summary Purpose Family History No Family History Records FoundNo Family History Records Found Advance Directives Advance Directive Response Recorded Date/ Time Advance Directives No December 26, 2 021 9:13pm Reason for Referral Reason Vashti Brambila CNP - [facility] - previously seeing office in [place]. Presently stable on meds. Bipolar depression and PTSD. Diagnosis 1 Bipolar disease, chr onic (F31.9) Referral Organization [facility] Referring Provider First Name Arely Referring Provider Last Name Carmen Referring Provider Specialty Family [facility] Referred Organization [facility] ice Referred Address [address] [place], [place],[address] Referred Provider Specialty Psychiatry Referral Priority Routine Chief Complaint and Reason for Visit Chief Complaint Check Up changes in medication Reason for Visit Fatigue Anxiety and depression Bipolar disease, chronic Additional Source Comments INFORMATION SOURCE (unrecogn ized section and content) DATE CREATED AUTHOR 09/26/2021 [facility] DATE CREATED AUTHOR AUTHOR'S ORGANIZ ATION 09/02/2022 [facility] REASON FOR VISIT (unrecogniz ed section and content) weight loss options, medicat ion disscussion1 month Follow upPsych Referral Updatemessage1 month Follow up1 month Follow upDISCUSS MEDICATIONrefillmessagerefillNo Information Care Teams (unrecognized sec tion and content) Team Status: Active Member Role Status Dates Arely Sen MD Primary Care Provider Active Team Status: Inactive Member Role Status Dates Arely Sen MD Primary Care Provide r, Attending Provider Active Start: November 20, 2023 End: November 20, 2023 Team Status: Inactive Member Role Status Dates Arely Sen MD Primary Care Provide r, Attending Provider Active Start: December 11, 2023 End: December 11, 2023 Goals (unrecognized section and content) Goals may be documented in a n alternate section FOR RECORDS PERTAINING TO PATIENTS WHO ARE OR HAVE BEEN ENROLLED IN A CHEMICAL DEPENDENCY/SUBSTANCEABUSE PROGRAM, SOME INFORMATION MAY BE OMITTED. This clinical summary was aggregated from multiple sources. Caution should be exercised in using it in the provision of clinical care. This summary normalizes information from multiple sources, and as a consequence, information in this document may materially change the coding, format and clinical context of patient data. In addition, data may be omitted in some cases. CLINICAL DECISIONS SHOULD BE BASED ON THE PRIMARY CLINICAL RECORDS. [facility] [email or web address] provides no warranty or guarantee of the accuracy or completeness of information in this document.
[2024-01-03 11:11] LABS: Age Gdln ACOG Testing Note (.); IGP, rfx Aptima HPV ASCU Note (.)
== END 2023-12-28 20:28 | disposition home or self-care (01) ==
LOC: LAB 20:27
PROVIDERS: PCP Family Medicine; Visit Provider Obstetrics & Gynecology
DX: Z01.419 Encounter for gynecological examination (general) (routine) without abnormal findings (principal)
CPT/HCPCS: G0145

== ENCOUNTER 2025-05-21 15:02 | Outpatient (REF) | payer OTHER, SELFPAY ==
--- OUTSIDE RECORDS SUMMARY | 2025-05-21 10:00 | XMS_ITS | Encounter Summary ---
Author Organization [facility] Address [address] [place] [address] Care Team Providers Care Communications Programmer Name Role Phone Arely Morales MD Primary Care Provider [phone] Stu Bowers MD Unavailable [phone] Reason for Visit * Reason Comments Well Women Visit Encounter Details Date Type Department Care Team (Latest Contact Info) Description 05/21/2025 10:00 AM EDT Procedure Visit [facility] [address] [place] [address] Franca Lynn, ELOY [address] [place] [address] Well woman exam with routine gynecological exam; STD exposure; Vaginal itching Social History Tobacco Use Types Packs/Day Years Used Date Smoking Tobacco: Never Smokeless Tobacco: Never Alcohol Use Standard Drinks/Week Comments Never 0 (1 standard drink = 0.6 oz pur e alcohol) Comments No Sex and Gender Information Value Date Recorded Sex Assigned at Female 08/29/2023 7:23 AM EST Legal Sex Female 7:02 PM EDT Gender Identity Female 08/29/2023 7:23 AM EST Sexual Orientation Bisexual 08/29/2023 7: 23 AM EST documented as of this encounter Last Filed Vital Signs Vital Sign Reading Time Taken Comments Blood Pressure 110/82 05/21/2025 10:19 AM EDT Pulse - - Temperature - - Respiratory Rate - - Oxygen Saturation - - Inhaled Oxygen Concentration - - Weight 92.9 kg (204 lb 12 oz) 05/21/2025 10:19 A M EDT Height - - Body Mass Index 33.05 01/13/2025 9:41 AM EDT documented in this encounter Progress Notes * CINDY Simon - 05/21/2025 10:00 AM EDT Reason for Appointment: Patient ID: Alondra Ruiz is a 24 y.o. female who presents for Well Women Visit Patient presents today for Annual Exam. MEDICATIONS Current Outpatient Medications Medication Instructions amphetamine-dextroamphetamine XR (Adderall XR) 30 MG 24 hr capsule 30 mg, Daily amphetamine-dextroamphetamine XR (Adderall XR) 5 MG 24 hr capsule TAKE ONE CAPSULE A DAY, TAKE WITH30 MG DOSE FOR TOTAL 35 MG ARIPiprazole (ABILIFY) 2 mg, Nightly busPIRone (BUSPAR) 10 mg, 3 times daily cetirizine (ZYRTEC) 10 mg, Nightly Estarylla 0.25-35 MG-MCG tablet 1 tablet, Oral, Daily hydrOXYzine HCl (ATARAX) 10 mg, 2 times daily PRN lamoTRIgine (LaMICtal) 200 MG tablet 1 tablet, Daily lamoTRIgine (LaMICtal) 25 MG tablet TAKE TWO TABLETS ONE TIME A DAY ALLERGIES No Known Allergies PROBLEMS Active Ambulatory Problems Diagnosis Date Noted Anxiety state 10/31/2024 Bipolar 2 disorder, major depressive episode (HCC) 10/31/2024 Class 2 obesity 10/31/2024 Depression 10/31/2024 Mixed anxiety and depressive disorder 10/31/2024 Dizziness 10/31/2024 Fatigue 10/31/2024 Hyperglycemia 10/31/2024 Hyperhidrosis 10/31/2024 Menorrhagia 10/31/2024 Otitis externa of left ear 10/31/2024 Resolved Ambulatory Problems Diagnosis Date Noted No Resolved Ambulatory Problems Past Medical History: Diagnosis Date ADHD (attention deficit hyperactivity disorder) Anxiety and depression BMI 38.0-38.9,adult Elevated glucose Encounter for control Gallo's disease Otitis externa, left HISTORY PAST MEDICAL HISTORY SOCIAL HISTORY Past Medical History: Diagnosis Date ADHD (attention deficit hyperactivity disorder) Anxiety and depression Anxiety state BMI 38.0-38.9,adult Depression Dizziness Elevated glucose Encounter for control Fatigue Gallo's disease Hyperhidrosis Menorrhagia Otitis externa, left Social History Tobacco Use Smoking status: Never Smokeless tobacco: Never Substance Use Topics Alcohol use: Never Drug use: Never FAMILY HISTORY No family history on file. SURGICAL HISTORY Past Surgical History: Procedure Laterality Date ADENOIDECTOMY TONSILLECTOMY REVIEW OF SYSTEMS Review of Systems: Review of Systems Constitutional: Negative. HENT: Negative. Eyes: Negative. Respiratory: Negative. Cardiovascular: Negative. Gastrointestinal: Negative. Genitourinary: Negative. Musculoskeletal: Negative. Skin: Negative. Neurological: Negative. All other systems reviewed and are negative. Hematological: Negative. Endocrine: Negative. Allergic/Immunologic: Negative. OBJECTIVE Objective: Physical Exam Constitutional: Appearance: Normal appearance. She is well-developed. Genitourinary: Vulva normal. Right Adnexa: not tender and no mass present. Left Adnexa: not tender and no mass present. No cervical discharge. Breasts: Breasts are soft. Right: Normal. Left: Normal. HENT: Head: Normocephalic. Nose: Nose normal. Mouth/Throat: Mouth: Mucous membranes are moist. Cardiovascular: Rate and Rhythm: Normal rate and regular rhythm. Pulmonary: Effort: Pulmonary effort is normal. Breath sounds: Normal breath sounds. Abdominal: General: Bowel sounds are normal. There is no distension. Palpations: Abdomen is soft. Tenderness: There is no abdominal tenderness. There is no guarding or rebound. Musculoskeletal: General: No swelling. Normal range of motion. Cervical back: Normal range of motion. Right lower leg: No edema. Left lower leg: No edema. Neurological: General: No focal deficit present. Mental Status: She is alert and oriented to person, place, and time. Skin: General: Skin is warm and dry. Psychiatric: Mood and Affect: Mood normal. Behavior: Behavior normal. Vitals and nursing note reviewed. Exam conducted with a distribution coordinator present. Vitals: Estimated body mass index is 33.05 kg/m?? as calculated from the following: Height as of 01/13/25: 5' 6 . Weight as of this encounter: 204 lb 12 oz. BP: 110/82 Patient's last menstrual period was 04/24/2025 (exact date). ASSESSMENT & PLAN ICD-10-CM 1. Well woman exam with routine gynecological exam Z01.419 Pap Smear 2. STD exposure Z20.2 SURESWAB(R) ADVANCED VAGINITIS PLUS, TMA CHLAMYDIA TRACHOMATIS (GENITO/STI) Neisseria gonorrhea DNA probe, direct 3. Vaginal itching N89.8 SURESWAB(R) ADVANCED VAGINITIS PLUS, TMA CHLAMYDIA TRACHOMATIS (GENITO/STI) Neisseria gonorrhea DNA probe, direct Orders Placed This Encounter Procedures CHLAMYDIA TRACHOMATIS (GENITO/STI) Neisseria gonorrhea DNA probe, direct Annual Wellness Exam: Patient presents today for routine annual exam. Patient states she has complaints of break through bleeding and pmdd. Patients vitals were reviewed and within normal limits. Growth and development is noted to be appropriate for age. Menstrual history is noted to be regular with concerns reported. No mental health concerns was expressed. Pap Smear: Speculum was inserted into the vagina and pap was obtained without difficulty. No HPV testing was performed per age guideline. Patient was advised that pap results could take anywhere from 7 to 10 days to receive and our office will reach out to the patient with those once we have them. Patient canalso view results via MyChart. I reinforced importance of condom use for STI prevention. Patient requested cultures to be performed with today's visit. Breast Exam: Upon examination, clinical breast exam was noted to be normal. Patient was counseled on breast self-awareness, including the importance of knowing what is normal for her own breasts and promptly reporting any changes such as new lumps, skin dimpling, nipple discharge, or pain. Screening mammogram recommended annually beginning at age 40 or earlier if risk factors are present. Discussed signs and symptoms of breast cancer and when to seek medical attention. Answered all patient questions. Contraceptive Counseling (if applicable): Patient is currently using oral contraception as a form of contraceptive. Patient does desire control at this time. We will send johnlessa to patients pharmacy. Changing BC due to bleeding and PMDD. We will try on Jolessa Follow Up: Patient is to return to our office in one year for annual exam unless needed otherwise. Documented by CINDY Simon on behalf of: Franca Lynn NP documented in this encounter Miscellaneous Notes * Addendum Note - CINDY Simon - 05/21/2025 10:00 AM EDTAddended by: TANJA VANG on: 05/21/2025 10:36 AM Modules accepted: Orders documented in this encounter Plan of Treatment Upcoming Encounters Date Type Department Care Team (Late st Contact Info) Description 01/12/2026 10:00 AM EDT Office Visit [facility] [place] [facility] [address] [place] [phone] Stu Bowers MD [address] [place] [address] 05/25/2026 10:00 AM EDT Procedure Visit [facility] [address] [place] [address] Tanja Vang PA [address] [place] [address] Scheduled Orders Name Type Priority Associated Diagnoses Orde r Schedule Pap Smear Pathology and Cytology Routine Well woman exam with routine gynecological exam Ordered: 05/21/2025 SURESWAB(R) ADVANCED VAGINITIS PLUS, TMA Pathology and Cytology Routine STD exposure Vaginal itching Ordered: 05/21/2025 CHLAMYDIA TRACHOMATIS (GENITO/STI) Lab Routine STD exposure Vaginal itching Ordered: 05/21/2025 Neisseria gonorrhea DNA probe, direct Lab Routine STD exposure Vaginal itching Ordered: 05/21/2025 documented as of this encounter Visit Diagnoses Diagnosis Well woman exam with routine gynecological exam Routine gynecological examination STD exposure Vaginal itching Pruritus of genital organs documented in this encounter Care Teams Communications Programmer Relationship Specialty Start Date End Date Arely Morales MD PCP - General Family Medicine 08/29/23 Stu Bowers MD [address] [place] [address] PCP - Medical [place] [employer] 09/11/13 09/10/99 documented as of this encounter
--- OUTSIDE RECORDS SUMMARY | 2025-05-21 15:12 | XMS_ITS | Clinical Summary ---
Author Organization [facility] Address [address] [facility] [place] [address] Care Team Providers Care Craps Manager Name Role Phone Arely Morales MD Primary Care Provider [phone] Stu Bowers MD Unavailable [phone] Allergies No known active allergies Medications cetirizine (ZyrTEC) 10 MG tablet Take 10 mg by mouth at bedtime 08/05/20 23 Active lamoTRIgine (LaMICtal) 200 MG tablet Take 1 tablet by mouth Daily 08/14/20 24 Active ARIPiprazole (Abilify) 2 MG tablet Take 2 mg by mouth at bedtime 08/12/20 24 Active Estarylla 0.25-35 MG-MCG tabletIndications : control counseling TAKE 1 TABLET DAILY 84 tablet 3 09/02/20 24 Active hydrOXYzine HCl (Atarax) 10 MG tablet Take 10 mg by mouth 2 (two) times a day as needed 02/20/20 25 Active amphetamine-dextr oamphetamine XR (Adderall XR) 30 MG 24 hr capsule Take 30 mg by mouth Daily 05/07/20 25 Active amphetamine-dextr oamphetamine XR (Adderall XR) 5 MG 24 hr capsule TAKE ONE CAPSULE A DAY, TAKE WITH 30 MG DOSE FOR TOTAL 35 MG 05/05/20 25 Active busPIRone (Buspar) 10 MG tablet Take 10 mg by mouth in the morning and 10 mg in the evening and 10 mg before bedtime. 05/12/20 25 Active lamoTRIgine (LaMICtal) 25 MG tablet TAKE TWO TABLETS ONE TIME A DAY 04/30/20 25 Active levonorgestrel-et hinyl estradiol (Jolessa) 0.15-0.03 MG tabletIndications :Well woman exam with routine gynecological exam Take 1 tablet by mouth Daily Take 1 tablet by mouth daily 84 tablet 3 05/21/20 25 025 Active lisdexamfetamine (Vyvanse) 40 MG capsule Take 40 mg by mouth in the morning. 08/15/20 24 025 Discontinued busPIRone (Buspar) 5 MG tablet Take 5 mg by mouth in the morning and 5 mg in the evening and 5 mg before bedtime. 025 Discontinued amphetamine-dextr oamphetamine (Adderall) 10 MG tablet Take 10 mg by mouth Daily 025 Discontinued Active Problems Problem Noted Date Diagnosed Date Anxiety state 10/31/2024 Bipolar 2 disorder, major depressive episode Class 2 obesity 10/31/2024 Depression 10/31/2024 Mixed anxiety and depressive disorder 10/31/2024 Dizziness 10/31/2024 Fatigue 10/31/2024 Hyperglycemia 10/31/2024 Hyperhidrosis 10/31/2024 Menorrhagia 10/31/2024 Otitis externa of left ear 10/31/2024 Encounters Date Type Department Care Team Description 05/21/2025 10:00 AM EDT Procedure Visit [facility] [address] [place] [address] [place] [phone] Franca Lynn NP Well woman exam with routine gynecological exam; STD exposure; Vaginal itching 05/15/2025 Orders Only [facility] [address] [place] [id number] Cassidy Salas LPN from Last 3 Months Immunizations Immunization Administration Dates Next Due DTaP / Hep B / IPV 02/24/2003 DTaP, Unspecified 12/27/2007, 4,06/23/2003, 003 Hep A, ped/adol, 2 dose 12/02/2015,03/26/2015 Hep B, Adolescent or Pediatric 2002 Hib (HbOC) 04/29/2003,02/24/2003 Hib (PRP-T) 03/10/2014 Hib / Hep B 06/23/2003 IPV 12/27/2007,04/29/2003 MMR 12/27/2007,01/08/2004 Meningococcal MCV4O 03/26/2015 Novel [id number], nasal 08/13/2009 Pneumococcal Conjugate PCV 7 06/23/2003,04/29/20 03,02/24/2003 Pneumococcal Conjugate, Unspecified 06/10/2004 Tdap 03/26/2015 Varicella 12/27/2007,01/08/2004 Social History Tobacco Use Types Packs/Day Years Used Date Smoking Tobacco: Never Smokeless Tobacco: Never Tobacco Cessation:Counseling Given: Not Answered Alcohol Use Standard Drinks/Week Comments Never 0 (1 standard drink = 0.6 oz pur e alcohol) Comments No Sex and Gender Information Value Date Recorded Sex Assigned at Female 08/29/2023 7:23 AM EST Legal Sex Female 7:02 PM EDT Gender Identity Female 08/29/2023 7:23 AM EST Sexual Orientation Bisexual 08/29/2023 7: 23 AM EST Last Filed Vital Signs Vital Sign Reading Time Taken Comments Blood Pressure 110/82 05/21/2025 10:19 AM EDT Pulse 88 01/13/2025 9:41 AM EDT Temperature - - Respiratory Rate 18 01/13/2025 9:41 AM EDT Oxygen Saturation 98% 01/13/2025 9:41 AM EDT Inhaled Oxygen Concentration - - Weight 92.9 kg (204 lb 12 oz) 05/21/2025 10:19 A M EDT Height 167.6 cm (5' 6 ) 01/13/2025 9:41 AM EDT Body Mass Index 33.05 01/13/2025 9:41 AM EDT Plan of Treatment Upcoming Encounters Date Type Department Care Team (Late st Contact Info) Description 01/12/2026 10:00 AM EDT Office Visit [facility] [place] [facility] [address] [place] [address] Stu Bowers MD [address] [place] [address] 05/25/2026 10:00 AM EDT Procedure Visit [facility] [address] [place] [phone] Tanja Hart PA [address] [place], [place] [id number] Health Maintenance Due Date Last Done Comments Influenza Vaccine (#1) 2025 Insurance [employer] Care Teams Craps Manager Relationship Specialty Start Date End Date Arely Morales MD PCP - General Family Medicine 08/29/23 Stu Bowers MD [address] [place] [address] PCP - Medical [employer] [employer] 09/11/13 09/10/99
--- OUTSIDE RECORDS SUMMARY | 2025-05-21 15:12 | XMS_ITS | Clinical Summary ---
Author Organization [employer] tem Address [id number] [address] [place] [address] Care Team Providers Care Executive Staff Assistant Name Role Phone Arely Morales MD Primary Care Provider [phone] Allergies No known active allergies Medications dextroamphetamin e-amphetamine (ADDERALL) 15 mg tablet Take 5 mg by mouth in the morning. Max Daily Amount: 5 mg. Active lamoTRIgine (LaMICtal) 150 mg tablet Take 1 tablet (150 mg total) by mouth in the morning. Active Encounters Date Type Department Care Team Description 04/30/2025 Travel from Last 3 Months Social History Tobacco Use Types Packs/Day Years Used Date Smoking Tobacco: Never Assessed Childcare Answer Date Recorded Childcare Unknown 02/20/2019 Employment Answer Date Recorded Employment Unknown 02/20/2019 Hunger Screening Answer Date Recorded Within the past 12 months we worried whether our food would run out before we got money to buy more. Never True 04/16/2024 Within the past 12 months th e food we bought just didn't last and we didn't have money to get more. Never True 04/16/2024 Comments No Sex and Gender Information Value Date Recorded Sex Assigned at Not on file Legal Sex Female 12:01 PM EDT Gender Identity Not on file Sexual Orientation Not on file Last Filed Vital Signs Vital Sign Reading Time Taken Comments Blood Pressure 137/94 04/16/2024 1:04 AM EDT Pulse 97 04/16/2024 1:04 AM EDT Temperature 36.7 C (98 F) 04/16/2024 1:04 AM EDT Respiratory Rate 18 04/16/2024 1:04 AM EDT Oxygen Saturation 98% 04/16/2024 1:04 AM EDT Inhaled Oxygen Concentration - - Weight 99.8 kg (220 lb) 04/16/2024 1:07 AM EDT Height 167.6 cm (5' 6 ) 04/16/2024 1:07 AM EDT Body Mass Index 35.51 04/16/2024 1:07 AM EDT Plan of Treatment Health Maintenance Due Date Last Done Comments Depression Screening 2014 Tobacco Screening 2014 Pap Smear 12/18/2023 DTaP,Tdap and Td Vaccines (7 - Td or Tdap) 03/26/2025 03/26/2015, 12/27/2007, 06/10/2004, Additional history exists Adult BMI Screening 04/16/2025 04/16/2024 COVID-19 Vaccine (2024-2 6 season) 2025 08/11/2021, 01/11/2021, 12/22/2020 Influenza Vaccine 05/12/2025 08/13/2009 Medical Devices Not on file Procedures Procedure Name Priority Date/Time Associated Diagnosis Comments T3, FREE Routine 04/30/2025 3:28 PM EDT Other specified abnormal immunological findings in serum THYROID PROFILE INCLUDES TSH FT4 Routine 04/30/2025 3:28 PM EDT Other specified abnormal immunological findings in serum MAGNESIUM Routine 04/30/2025 3:28 PM EDT Encounter for general adult medical examination without abnormal findings Other fatigue VITAMIN D 25 HYDROXY Routine 04/30/2025 3:28 PM EDT Encounter for general adult medical examination without abnormal findings Other fatigue CBC WITH AUTO DIFFERENTIAL Routine 04/30/2025 3:28 PM EDT Encounter for general adult medical examination without abnormal findings Other fatigue VITAMIN B12 Routine 04/30/2025 3:28 PM EDT Encounter for general adult medical examination without abnormal findings Other fatigue HEMOGLOBIN A1C Routine 04/30/2025 3:28 PM EDT Encounter for general adult medical examination without abnormal findings Other fatigue COMPREHENSIVE METABOLIC PANEL Routine 04/30/2025 3:28 PM EDT Encounter for general adult medical examination without abnormal findings Other fatigue LIPID PROFILE Routine 04/30/2025 3:28 PM EDT Encounter for general adult medical examination without abnormal findings Other fatigue from Last 3 Months Results * Thyroid profile includes TSH FT4 (04/30/2025 3:28 PM EDT) FREE T4 0.99 0.61 - 1.60 ng/dL 04/30/2025 10:30 PM EDT [facility] TSH 1.42 0.49 - 4.67 uIU/mL 04/30/2025 10:30 PM EDT [facility] Blood Venous blood / Unknown Venipuncture / Unknown 04/30/2025 3:28 PM EDT 04/30/2025 3:35 PM EDT us Stu Bowers MD LAB BLOOD ORDERABLES Final Re sult [facility] [address] [place] [address], [place] [phone] * (ABNORMAL) CBC auto differential (04/30/2025 3:28 PM EDT) WBC 5.9 4 - 11 x10E9/L 04/30/2025 10:33 PM EDT [facility] RBC Count 4.47 3.8 - 5.2 X10E12/L 04/30/2025 10:33 PM EDT [facility] Hemoglobin 12.8 11.7 - 15.5 g/dL 04/30/2025 10:33 PM EDT [facility] Hematocrit 37.6 35 - 47 % 04/30/2025 10:33 PM EDT [facility] MCV 84 80 - 100 fL 04/30/2025 10:33 PM EDT [facility] MCH 28.5 27 - 34 pg 04/30/2025 10:33 PM EDT [facility] MCHC 33.9 32 - 36 g/dL 04/30/2025 10:33 PM EDT [facility] RDW 12.8 11.5 - 15 % 04/30/2025 10:33 PM EDT [facility] Platelet Count 192 150 - 450 X10E9/L 04/30/2025 10:33 PM EDT [facility] MPV 10.3 7 - 12 fL 04/30/2025 10:33 PM EDT [facility] Neutrophils % 29 % 04/30/2025 10:33 PM EDT [facility] Comment:This is an appended report. These results have been appended to a previously preliminary verified report. Lymphocytes % 65 % 04/30/2025 10:33 PM T [facility] Comment:This is an appended report. These results have been appended to a previously preliminary verified report. Monocytes % 5 % 04/30/2025 10:33 PM T [facility] Comment:This is an appended report. These results have been appended to a previously preliminary verified report. Eosinophils % 1 % 04/30/2025 10:33 PM EDT [facility] Comment:This is an appended report. These results have been appended to a previously preliminary verified report. Neutrophils Absolute (M) 1.7 1.5 - 6.6 10*3/uL 04/30/2025 10:33 PM EDT [facility] Comment:This is an appended report. These results have been appended to a previously preliminary verified report. Lymphocytes Absolute 3.8(H) 1.0 - 3.5 10*3/uL 04/30/2025 10:33 PM T [facility] Comment:This is an appended report. These results have been appended to a previously preliminary verified report. Monocytes Absolute 0.3 0.0 - 0.9 10*3/uL 04/30/2025 10:33 PM EDT [facility] Comment:This is an appended report. These results have been appended to a previously preliminary verified report. Eosinophils Absolute 0.1 0.0 - 0.4 10*3/uL 04/30/2025 10:33 PM EDT [facility] Comment:This is an appended report. These results have been appended to a previously preliminary verified report. RBC Morphology Normal 04/30/2025 10:33 PM EDT [facility] Comment:This is an appended report. These results have been appended to a previously preliminary verified report. Differential Type MANUAL DIFFERENTIAL 04/30/2025 10:33 PM EDT [facility] Comment:This is an appended report. These results have been appended to a previously preliminary verified report. Blood Venous blood / Unknown Venipuncture / Unknown 04/30/2025 3:28 PM EDT 04/30/2025 3:35 PM EDT us Arely Morales MD LAB BLOOD ORDERABLES Final Res ult [facility] [address] [place] [address], [place] [phone] * Vitamin D 25 hydroxy (04/30/2025 3:28 PM EDT) VITAMIN D 25 HYD TOT 32.2 30.0 - 100.0 ng/mL 04/30/2025 10:43 PM EDT [facility] Blood Venous blood / Unknown Venipuncture / Unknown 04/30/2025 3:28 PM EDT 04/30/2025 3:35 PM EDT Narrative [facility] - 04/30/2025 10:43 PM EDT Vitamin D status 25 [place] Vitamin D Deficiency <20 ng/mL Insufficiency 20-29 ng/mL Sufficiency 30-100 ng/mL Toxicity >100 ng/mL NOTE: A pediatric reference range has not been established by the drawer maker of this kit. The [employer] recommends a Vitamin D level of = or >20ng/mL in infants and children. us Arely Morales MD LAB BLOOD ORDERABLES Final Res ult Performing Organization Address City/[facility]/ZIP Co de Phone Number [facility] [address] [place] [address], * (ABNORMAL) T3, free (04/30/2025 3:28 PM EDT) FREE T3 4.15(H) 2.50 - 3.90 pg/mL 04/30/2025 10:31 PM EDT [facility] Blood Venous blood / Unknown Venipuncture / Unknown 04/30/2025 3:28 PM EDT 04/30/2025 3:35 PM EDT us Stu Bowers MD LAB BLOOD ORDERABLES Final Re sult Performing Organization Address City/[facility]/ZIP Co de Phone Number [facility] [address] [place] [address], * Magnesium (04/30/2025 3:28 PM EDT) [facility] MAGNESIUM 2.1 1.8 - 2.6 mg/dL 04/30/2025 10:17 PM EDT [facility] Blood Venous blood / Unknown Venipuncture / Unknown 04/30/2025 3:28 PM EDT 04/30/2025 3:35 PM EDT us Arely Morales MD LAB BLOOD ORDERABLES Final Res ult Performing Organization Address City/[facility]/ZIP Co de Phone Number [facility] [address] [place] [address], * Hemoglobin A1c (04/30/2025 3:28 PM EDT) HEMOGLOBIN A1C 4.8 4.4 - 5.6 % 05/01/2025 6:54 AM EDT [facility] Comment: ADA Guidelines Result HgbA1c Normal : less than 5.7 % Prediabetes : 5.7 % to 6.4 % Diabetes : > 6.4 % Use with caution in patients with abnormal hemoglobin variants as the half-life of red blood cells and in vivo glycation rates are affected. EST. AVERAGE GLUCOSE 91 mg/dL 05/01/2025 6:54 AM EDT [facility] Blood Venous blood / Unknown Venipuncture / Unknown 04/30/2025 3:28 PM EDT 04/30/2025 3:35 PM EDT Arely Morales MD LAB BLOOD ORDERABLES Final Res ult Performing Organization Address City/[facility]/ZIP Co de Phone Number [facility] [address] [place] [address], [place] [phone] * Vitamin B12 (04/30/2025 3:28 PM EDT) [facility] VITAMIN B12 434 180 - 914 pg/mL 04/30/2025 10:39 PM EDT [facility] Blood Venous blood / Unknown Venipuncture / Unknown 04/30/2025 3:28 PM EDT 04/30/2025 3:35 PM EDT us Arely Morales MD LAB BLOOD ORDERABLES Final Res ult [facility] [address] [place] [address], [place] [phone] * (ABNORMAL) Lipid profile (04/30/2025 3:28 PM EDT) [facility] CHOLESTEROL 167 150 - 200 mg/dL 04/30/2025 10:17 PM EDT [facility] TRIGLYCERIDE 248(H) 27 - 150 mg/dL 04/30/2025 10:17 PM EDT [facility] HDL CHOLESTEROL 49 >39 mg/dL 10:17 PM EDT [facility] Comment: HDL <40 mg/dL - High Risk HDL > or = 40mg/dL- Desirable HDL >60 mg/dL - Negative Risk LDL (CALC) 68 <130 mg/dL 04/30/2025 10:17 PM EDT [facility] Comment: LDL <100 mg/dL - Desirable LDL >160 mg/dL - High Risk CHOLESTEROL:HDL 3.4 1.0 - 5.0 10:17 PM EDT [facility] VERY LOW LIPOPROTEIN 50(H) 0 - 30 mg/dL 04/30/2025 10:17 PM EDT [facility] Blood Venous blood / Unknown Venipuncture / Unknown 04/30/2025 3:28 PM EDT 04/30/2025 3:35 PM EDT us Arely Morales MD LAB BLOOD ORDERABLES Final Res ult [facility] [address] [place] [address], [place] [phone] * (ABNORMAL) Comprehensive metabolic panel (04/30/2025 3:28 PM EDT) SODIUM 137 134 - 146 mmol/L 04/30/2025 10:17 PM EDT [facility] POTASSIUM 3.9 3.5 - 5.0 mmol/L 04/30/2025 10:17 PM EDT [facility] CHLORIDE 103 98 - 109 mmol/L 04/30/2025 10:17 PM EDT [facility] CARBON DIOXIDE 27 22 - 32 mmol/L 04/30/2025 10:17 PM EDT [facility] ANION GAP 7 5 - 15 mmol/L 04/30/2025 10:17 PM EDT [facility] BLOOD UREA NITROGEN 9 5 - 23 mg/dL 04/30/2025 10:17 PM EDT [facility] CREATININE 0.87 0.40 - 1.00 mg/dL 04/30/2025 10:17 PM EDT [facility] Comment:METHOD TRACEABLE TO IDIN STANDARD GLUCOSE 100(H) 65 - 99 mg/dL 04/30/2025 10:17 PM EDT [facility] CALCIUM 8.9 8.5 - 10.5 mg/dL 04/30/2025 10:17 PM EDT [facility] TOTAL PROTEIN 7.2 6.0 - 8.0 g/dL 04/30/2025 10:17 PM EDT [facility] ALBUMIN 4.2 3.2 - 5.3 g/dL 04/30/2025 10:17 PM EDT [facility] ALKALINE PHOSPHATASE 102 39 - 130 U/L 04/30/2025 10:17 PM EDT [facility] AST 30 <=41 U/L 04/30/2025 10:17 PM EDT [facility] ALT 46(H) <=31 U/L 04/30/2025 10:17 PM EDT [facility] BILIRUBIN,TOTAL 1.1 0.3 - 1.2 mg/dL 04/30/2025 10:17 PM EDT [facility] EGFR Non-Race Dependent >90 >=60 ml/min/1.7 3sq.m 04/30/2025 10:17 PM EDT [facility] Comment: Reported eGFR is based on the CKD-EPI 2020 equation that does not use a race coefficient. EGFR not calculated due to patient's gender not being defined. Blood Venous blood / Unknown Venipuncture / Unknown 04/30/2025 3:28 PM EDT 04/30/2025 3:35 PM EDT us Arely Morales MD LAB BLOOD ORDERABLES Final Res ult [facility] [address] [place] [address], [place] [phone] from Last 3 Months Insurance [employer] Care Teams Executive Staff Assistant Relationship Specialty Start Date End Date Arely Morales MD [address] [place] [id number] PCP - General Family Medicine 12/26/20
--- OUTSIDE RECORDS SUMMARY | 2025-05-21 15:12 | XMS_ITS | Encounter Summary ---
Author Organization [facility] Address [address] [place] [address] Care Team Providers Care Commercial Loan Officer Name Role Phone Arely Morales MD Primary Care Provider [phone] Stu Bowers MD Unavailable [phone] Encounter Details Date Type Department Care Team (Late st Contact Info) Description 05/15/2025 Orders Only [facility] [address] [place] [address] Cassidy Salas LPN [address] [place] [address] Social History Tobacco Use Types Packs/Day Years Used Date Smoking Tobacco: Never Smokeless Tobacco: Never Alcohol Use Standard Drinks/Week Comments Never 0 (1 standard drink = 0.6 oz pur e alcohol) Comments Unknown Sex and Gender Information Value Date Recorded Sex Assigned at Female 08/29/2023 7:23 AM EST Legal Sex Female 7:02 PM EDT Gender Identity Female 08/29/2023 7:23 AM EST Sexual Orientation Bisexual 08/29/2023 7: 23 AM EST documented as of this encounter Plan of Treatment Upcoming Encounters Date Type Department Care Team (Late st Contact Info) Description 01/12/2026 10:00 AM EDT Office Visit [facility] [address] [place] [address] Stu Bowers MD [address] [place] [address] 05/25/2026 10:00 AM EDT Procedure Visit [facility] [address] [place] [address] Tanja Hart PA [address] [place] [address] documented as of this encounter Procedures Procedure Name Priority Date/Time Associated Diagnosis Comments PAP SMEAR Routine 12/28/2023 12:00 AM EDT documented in this encounter Results * Pap Smear (12/28/2023 12:00 AM EDT) Swab Cervical swab / Unknown [facility] CYTOLOGY ORDERABLES Final Result EXTERNAL LAB documented in this encounter Visit Diagnoses Not on filedocumented in this encounter Care Teams Commercial Loan Officer Relationship Specialty Start Date End Date Arely Morales MD PCP - General Family Medicine 08/29/23 Stu Bowers MD [address] [place] [address] PCP - Medical [place] [employer] 09/11/13 09/10/99 documented as of this encounter
--- OUTSIDE RECORDS SUMMARY | 2025-05-21 15:12 | XMS_ITS | Patient Health Record ---
Author Organization [facility] [employer] Address [address] [facility] [place] [address] Care Team Providers Care Supervisor Front Name Role Phone DebbierainerLoy dudleysanam Primary Care Provider Allergies No Known Allergies Reason For Referral No Information Medications Medication SIG (Take, Route, Frequency, Duration) Notes Start Date End Date Status QUEtiapine Fumarate 25 MG 1 tablet at be dtime Orally Once a day; Duration: 30 day(s) 05/10/2023 Active Estarylla 0.25-35 MG-MCG Oral; Duration: 84 Active lamoTRIgine 25 MG Oral; Duration: 30 Active ARIPiprazole 5 MG take 1 tablet in the AM for 5 days, then take 2 tablets in the AM for 5 days, then take 3 tablets in the AM Orally as directed; Duration: 30 days 05/10/2023 Active ARIPiprazole 2 MG 1 tablet Orally Once a day; Duration: 5 days 05/10/2023 Active Cetirizine HCl 10 MG take 1 tablet by mo uth nightly Oral; Duration: 30 Activ e hydrOXYzine HCl 25 MG Oral; Duration: 30 Active Social History Tobacco Use: Social History Observation Description Date Details (start date - stop date) Current Smoker NA - NA Tobacco Screen: Question Answer Notes Are you a: current smoker Depression Screening (PHQ-9): Question Answer Notes Little interest or pleasure in doing things Near ly every day Feeling down, depressed, or hopeless Not at all Trouble falling or staying a sleep, or sleeping too much Nearly every day Feeling tired or having little energy Nearly mark ry day Poor appetite or overeating Not at all Feeling bad about yourself-o r that you are a failure or have let yourself or your family down Several days Trouble concentrating on thi ngs, such as reading the newspaper or watching television Nearly every day Moving or speaking so slowly that other people could have noticed. Or the opposite being so fidgety or restless that you have been moving around a lot more than usual Nearly every day Thoughts that you would be b fidel off , or of hurting yourself in some way Not at all Total Score 16 Intepretation Moderately severe depression Section Notes: vape Problems Problem Type SNOMED Code ICD Code Onset Dates Problem Status W/U Status Risk Notes Problem Bipolar II disorder (22576638) Bipolar 2 disorder, major depressive episode (F31.81) Active confirmed Plan Of Treatment No Information Insurance Providers Payer Name Payer Address Payer Phone Subscriber Number Group Number Insured Name Patient Relationship to Insured Coverage Start Date Coverage End Date MEDICAL COUNTS INCLUDE [address] [facility] [address] [place] [phone] [id number] YOBANI GOULD Self - patient is the insured 3 Medical (General) History Medical History History ICD Code bipolar PTSD Hospitalization History Reason Date(Month/Year) [address] 12/2020
--- OUTSIDE RECORDS SUMMARY | 2025-05-21 17:06 | XMS_ITS | CCD ---
Author Organization [facility] Care Team Providers Care Record Changer Tester Name Role Phone JAYY, DR HYATT Attending [...] Consulting Unavailable PAY, DR MARIE Admitting Unavailable FRANCY, DR ARELY Jewell Primary Care Unavailable ALYSSA LAURA Consulting Unavailable Arely Sen Unavailable Arely Sen MD Primary Care Provider Arely Sen MD Primary Care Provider STU QUINONES Attending Unavailable STU QUINONES Referring Unavailable TANJA VANG Attending Unavailable STU QUINONES Referring Unavailable ARELY SEN Primary Care Unavailable Stu Quinones MD Unavailable [phone] Allergies Allergy Classification Reported Allergen(s) Allergy Type Date of Onset Reaction(s) Facility (2 sources) patient allergy list reviewed by nurse or physicia Propensity to adverse reactions 9 Comment:Done Yolto Other (2 sources) Allergies Reconciled Propensity to adverse reactions Unknown Yolto Other Medications Current Medications Medication Drug Class(es) Dates Sig (Normalized) Sig (Original) 24 hr amphetamine aspartate 7.5 mg / amphetamine sulfate 7.5 mg / dextroamphetamine saccharate 7.5 mg / dextroamphetamine sulfate 7.5 mg extended release oral capsule (5 sources) Central Nervous System Stimulant Start: 05-07-2025 take 1 capsule by mouth once daily, then take 1 capsule by mouth every twenty-four hours amphetamine-dext roamphetamine XR (Adderall XR) 30 MG 24 hr capsule Take 30 mg by mouth Daily 05/07/2025 Active Start: 05-05-2025 amphetamine-de xtroamphetamine XR (Adderall XR) 5 MG 24 hr capsule TAKE ONE CAPSULE A DAY, TAKE WITH 30 MG DOSE FOR TOTAL 35 MG 05/05/2025 Active End: 05-21-2025 take 1 tablet by mouth once daily amphetamine-dextroamphetamine (Adderall) 10 MG tablet Take 10 mg by mouth Daily 05/21/2025 Discontinued ARIPiprazole 2 mg oral tablet (7 sources) Atypical Antipsychotic Start: 08-12-2024 take 1 tablet by mouth at bedtime ARIPiprazole (Abilify) 2 MG tablet Take 2 mg by mouth at bedtime 08/12/2024 Active buPROPion hydrochloride 75 mg oral tablet (12 sources) Aminoketone Start: 12-11-2023 Bupropion Hcl Active 75 MG PO Twice daily 60 December 11, 2023 12:00am administer 6 hours apart Start: 11-17-2023 End: 12-11-2023 take 100 mg by mouth twice daily Bupropion Hcl Discontinued 100 MG PO Twice daily November 17, 2023 1:00am December 11, 2023 9:54am End: 08-29-2024 take 1 tablet by mouth once daily buPROPion (Wellbutrin) 75 MG tablet Take 75 mg by mouth Daily 08/29/2024 Discontinued take 1 tablet by rosey th twice daily Wellbutrin SR 100 MG 1 tab Orally bid for 90 days Active busPIRone hydrochloride 10 mg oral tablet (4 sources) Start: 05-12-2025 take 1 tablet by mouth in the morning, then take 1 tablet by mouth in the evening, then take 1 tablet by mouth at bedtime busPIRone (Buspar) 10 MG tablet Take 10 mg by mouth in the morning and 10 mg in the evening and 10 mg before bedtime. 05/12/2025 Active End: 05-21-2025 take 1 tablet by mouth in the morning, then take 1 tablet by mouth in the evening, then take 1 tablet by mouth at bedtime busPIRone (Buspar) 5 MG tablet Take 5 mg by mouth in the morning and 5 mg in the evening and 5 mg before bedtime. 05/21/2025 Discontinued cetirizine hydrochloride 10 mg oral tablet (9 sources) Histamine-1 Receptor Antagonist Start: 04-09-2024 Cetirizine Active MG PO April 09, 2024 12:00am Start: 08-05-2023 take 1 tablet by rosey th at bedtime cetirizine (ZyrTEC) 10 MG tablet Take 10 mg by mouth at bedtime 08/05/2023 Active Dextroamphetamine-Amphetamin e (1 source) Start: 04-09-2024 Dextroamphetamine-Amphetamin e Active PO April 09, 2024 12:00am ethinyl estradiol 0.035 mg / norgestimate 0.25 mg oral tablet (20 sources) Progestin, Estrogen Start: 09-02-2024 Estarylla 0.25-35 MG-MCG tablet Indications: control counseling TAKE 1 TABLET DAILY 84 tablet 3 09/02/2024 Active Start: 11-17-2023 take 1 tablet by rosey th once daily Norgestimate-Ethinyl Estradiol (Estarylla) 0.25-35 mg-mcg tablet Active 1 TAB PO Daily November 17, 2023 1:00am Start: 10-17-2023 Estarylla 0.25 -35 MG-MCG tablet Indications: control counseling TAKE 1 TABLET DAILY 84 tablet 3 10/17/2023 Active take 1 tablet by rosey th every twenty-four hours Estarylla 0.25-35 MG-MCG 1 tablet Orally Once a day Active hydrOXYzine hydrochloride 10 mg oral tablet (1 source) Antihistamine Start: 02-19-2025 take 1 tablet by mouth twice daily as needed hydrOXYzine HCl (Atarax) 10 MG tablet Take 10 mg by mouth 2 (two) times a day as needed 02/19/2025 Active lamoTRIgine 25 mg oral tablet (20 sources) Mood Stabilizer, Anti-epileptic Agent Start: 04-30-2025 lamoTRIgine (LaMICtal) 25 MG tablet TAKE TWO TABLETS ONE TIME A DAY 04/30/2025 Active Start: 08-14-2024 take 1 tablet by rosey th once daily lamoTRIgine (LaMICtal) 200 MG tablet Take 1 tablet by mouth Daily 08/14/2024 Active Start: 04-09-2024 Lamotrigine Ac tive MG PO April 09, 2024 12:00am Start: 11-17-2023 take 100 mg by mouth once jackie y Lamotrigine Active 100 MG PO Daily November 17, 2023 1:00am Start: 08-08-2023 End: 08-29-2024 lamoTRIgine (LaMICtal) 100 M G tablet Take 25 mg by mouth in the morning. 08/08/2023 08/29/2024 Discontinued take 1 tablet by rosey th once daily in the evening lamoTRIgine 100 MG 1 tablet Orally qpm for 90 days Active lamoTRIgine 25 m g TAKE 1 TABLET AT BEDTIME Active take 2 tablets by mo uth at bedtime LaMICtal 25 MG 2 tablets Orally at bedtime for 30 days Active lisdexamfetamine dimesylate 40 mg oral capsule (7 sources) Central Nervous System Stimulant Start: 08-15-2024 End: 05-21-2025 take 1 capsule by mouth in the morning lisdexamfetamine (Vyvanse) 40 MG capsule Take 40 mg by mouth in the morning. 08/15/2024 05/21/2025 Discontinued lurasidone hydrochloride 20 mg oral tablet (1 source) Atypical Antipsychotic take 1 tablet by mouth every twenty-four hours Latuda 20 MG 1 tablet in the evening with food Orally Once a day for 30 days Active phentermine hydrochloride 37.5 mg oral capsule (5 sources) Sympathomimetic Amine Anorectic Start: 04-11-2023 take 1 capsule by mouth every twenty-four hours Adipex-P 37.5 MG 1 capsule Orally Once a day for 30 days Apr, Active Start: 03-13-2023 take 1 capsule by mo uth every twenty-four hours Adipex-P 37.5 MG 1 capsule Orally Once a day for 30 days Mar, Active Start: 02-13-2023 take 1 capsule by mo uth every twenty-four hours Adipex-P 37.5 MG 1 capsule Orally Once a day for 30 days Feb, Active Completed/Discontinued Medications Medication Drug Class(es) Dates Sig (Normalized) Sig (Original) Drospirenone-Ethin yl Estradiol (2 sources) Progestin, Estrogen Start: 12-26-2020 End: 11-17-2023 Drospirenone-Ethin yl Estradiol (Marie) 3-0.03 mg tablet Discontinued 1 TAB PO Daily December 26, 2020 12:00am November 17, 2023 1:19pm FLUoxetine 20 mg oral tablet (2 sources) Serotonin Reuptake Inhibitor Start: 12-26-2020 End: 12-30-2020 take 20 mg by mouth once daily Fluoxetine Discontinued 20 MG PO Daily December 26, 2020 12:00am December 30, 2020 11:41am venlafaxine 75 mg oral tablet (2 sources) Serotonin and Norepinephrine Reuptake Inhibitor Start: 12-30-2020 End: 11-17-2023 take 75 mg by mouth at bedtime Venlafaxine Discontinued 75 MG PO Bedtime 30 30 December 30, 2020 12:00am November 17, 2023 1:19pm Problems Active Problems Problem Classification Problem Date Documented Date Episodic/Chronic Abdominal pain (5 sources) Pelvic and perineal pain; Translations: [Unspecified abdominal pain] Onset: 10-12-2021 Episodic Administrative/social admission (2 sources) Patient encounter status; Translations: [Dietary counseling and surveillance] 01-13-2025 Episodic Allergic reactions (3 sources) Urticaria, unspecified; Translations: [Urticaria] Episodic Anxiety disorders (20 sources) Posttraumatic stress disorder; Translations: [Post-traumatic stress disorder, unspecified] Onset: 10-31-2024 Chronic Contraceptive and procreative management (3 sources) Surveillance of contraception; Translations: [Encounter for contraceptive management, unspecified] Episodic Immunizations and screening for infectious disease (18 sources) Encounter for screening for infections with a predominantly sexual mode of transmission; Translations: [Sexually transmitted infectious disease] Onset: 05-09-2022 Episodic Menstrual disorders (9 sources) Excessive and frequent menstruation; Translations: [Excessive or frequent menstruation] Onset: 12-04-2017 10-31-2024 Chronic Mood disorders (20 sources) Bipolar disorder; Translations: [Bipolar disorder, unspecified] Onset: 12-04-2017 Chronic Nutritional deficiencies (2 sources) Vitamin D deficiency; Translations: [Vitamin D deficiency, unspecified] 01-13-2025 Chronic Other circulatory disease (3 sources) Elevated blood-pressure reading without diagnosis of hypertension; Translations: [Elevated blood-pressure reading, without diagnosis of hypertension] Episodic Other ear and sense organ disorders (2 sources) Infective otitis externa; Translations: [Unspecified infective otitis externa] Onset: 03-12-2018 Chronic Other ear and sense organ disorders (7 sources) Otitis externa of left ear; Translations: [Unspecified otitis externa, left ear] Onset: 10-31-2024 10-31-2024 Chronic Other female genital disorders (5 sources) Other specified noninflammatory disorders of vagina; Translations: [OTH SPEC NONINFLAMMATORY D/O VAGINA] Onset: 05-10-2022 Episodic Other female genital disorders (3 sources) Noninflammatory disorder of the vagina; Translations: [Other specified noninflammatory disorders of vagina] Episodic Other female genital disorders (2 sources) Vaginal discharge; Translations: [Other specified noninflammatory disorders of vagina] 08-29-2024 Episodic Other female genital disorders (1 source) Pruritus of vagina; Translations: [Other specified noninflammatory disorders of vagina] 05-21-2025 Episodic Other nutritional; endocrine; and metabolic disorders [...] nutritional; endocrine; and metabolic disorders (7 sources) Obese class II; Translations: [Body mass index (BMI) 38.0-38.9, adult] Onset: 10-31-2024 10-31-2024 Chronic Other nutritional; endocrine; and metabolic disorders (7 sources) Body mass index 30+ - obesity; Translations: [Body mass index (BMI) 39.0-39.9, adult] Chronic Other nutritional; endocrine; and metabolic disorders (11 sources) Obesity caused by energy imbalance; Translations: [Other obesity due to excess calories] 11-17-2023 Chronic Other nutritional; endocrine; and metabolic disorders (2 sources) Other obesity due to excess calories Chronic Other nutritional; endocrine; and metabolic disorders (2 sources) Body mass index (BMI) 39.0-39.9, adult Chronic Other screening for suspected conditions (not mental disorders or infectious disease) (2 sources) Thyroid function tests abnormal; Translations: [Other specified abnormal findings of blood chemistry] 11-29-2023 Episodic Other upper respiratory infections (11 sources) Acute maxillary sinusitis; Translations: [Acute recurrent maxillary sinusitis] Onset: 01-13-2015 04-09-2024 Episodic Residual codes; unclassified (11 sources) Insomnia; Translations: [Insomnia, unspecified] 11-17-2023 Episodic Residual codes; unclassified (1 source) Insomnia, unspecified Episodic Substance-related disorders (1 source) Nicotine dependence, cigarettes, uncomplicated; Translations: [NICOTINE DEPEND CIGARETTES UNCOMP] Onset: 10-14-2021 Chronic Past or Other Problems Problem Classification Problem Date Documented Da te Episodic/Chronic Conditions associated with dizziness or vertigo (7 sources) Dizziness and giddiness; Translations: [Dizziness and giddiness] Onset: 01-13-2015 10-31-2024 Episodic Diabetes mellitus without complication (20 sources) Hyperglycemia; Translations: [Other abnormal glucose] Onset: 10-31-2024 11-17-2023 Episodic Malaise and fatigue (20 sources) Fatigue; Translations: [Other fatigue] Onset: 10-31-2024 11-17-2023 Episodic Nausea and vomiting (1 source) Nausea with vomiting, unspecified; Translations: [NAUSEA WITH VOMITING UNSPECIFIED] Onset: 10-14-2021 Episodic Other aftercare (1 source) Other intermediate frame tender (current) drug therapy; Translations: [OTH POLYMER TESTER 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 THERAPY] Onset: 10-14-2021 Episodic Other ear and sense organ disorders (2 sources) Acute otitis externa; Translations: [Acute swimmers' ear] Onset: 04-07-2017 Episodic Other gastrointestinal disorders (1 source) Diarrhea, unspecified; Translations: [DIARRHEA UNSPECIFIED] Onset: 10-14-2021 Episodic Other skin disorders (3 sources) Generalized hyperhidrosis; Translations: [Generalized hyperhidrosis] Onset: 03-26-2019 Episodic Other skin disorders (4 sources) Hyperhidrosis; Translations: [Generalized hyperhidrosis] Onset: 10-31-2024 10-31-2024 Episodic Results Test Name Value Interpretation Reference Range Facility CBC WITH AUTO DIFFERENTIALon 04-30-2025 CELLAVISION DIFFERENTIAL TYPE MANUAL DIFFERENTIAL Normal [facility] Comment on above: Result Comment: This is an appended report. These results have been appended to a previously preliminary verified report. Performed By: #### C BCA #### [facility] ([facility]) [address] [place] [address] VIR CELLAVISION EOSINOPHILS ABSOLUTE COUNT (10*3/UL) BY MANUAL COUNT 0.1 10*3/uL Normal 0.0-0.4 [facility] Comment on above: Result Comment: This is an appended report. These results have been appended to a previously preliminary verified report. Performed By: #### C BCA #### [facility] ([facility]) [address] [place] [address] VIR CELLAVISION EOSINOPHILS PERCENT BY MANUAL COUNT 1 % Normal [facility] Comment on above: Result Comment: This is an appended report. These results have been appended to a previously preliminary verified report. Performed By: #### C BCA #### [facility] ([facility]) [address] [place] [address] VIR CELLAVISION LYMPHOCYTES ABSOLUTE COUNT (10*3/UL) BY MANUAL COUNT 3.8 10*3/uL High 1.0-3.5 [facility] Comment on above: Result Comment: This is an appended report. These results have been appended to a previously preliminary verified report. Performed By: #### C BCA #### [facility] ([facility]) [address] [place] [address] VIR CELLAVISION LYMPHOCYTES RELATIVE PERCENT BY MANUAL COUNT 65 % Normal [facility] Comment on above: Result Comment: This is an appended report. These results have been appended to a previously preliminary verified report. Performed By: #### C BCA #### [facility] ([facility]) [address] [place] [address] VIR CELLAVISION MONOCYTES ABSOLUTE COUNT (10*3/UL) IN BLOOD BY MANUAL COUNT 0.3 10*3/uL Normal 0.0-0.9 [facility] Comment on above: Result Comment: This is an appended report. These results have been appended to a previously preliminary verified report. Performed By: #### C BCA #### [facility] ([facility]) [address] [place] [address] VIR CELLAVISION MONOCYTES RELATIVE PERCENT BY MANUAL COUNT 5 % Normal [facility] Comment on above: Result Comment: This is an appended report. These results have been appended to a previously preliminary verified report. Performed By: #### C BCA #### [facility] ([facility]) [address] [place] [address] VIR CELLAVISION NEUTROPHILS ABSOLUTE COUNT BY MANUAL COUNT 1.7 10*3/uL Normal 1.5-6.6 [facility] Comment on above: Result Comment: This is an appended report. These results have been appended to a previously preliminary verified report. Performed By: #### C BCA #### [facility] ([facility]) [address] [place] [address] VIR CELLAVISION NEUTROPHILS RELATIVE PERCENT BY MANUAL COUNT 29 % Normal [facility] Comment on above: Result Comment: This is an appended report. These results have been appended to a previously preliminary verified report. Performed By: #### C BCA #### [facility] ([facility]) [address] [place] [address] VIR CELLAVISION RBC MORPHOLOGY Normal Normal [facility] Comment on above: Result Comment: This is an appended report. These results have been appended to a previously preliminary verified report. Performed By: #### C BCA #### [facility] ([facility]) [address] [place] [address] VIR Erythrocyte distribution width (RBC) [Ratio] 12.8 % Normal 11.5-15 [facility] Comment on above: Performed By: #### C BCA #### [facility] ([facility]) [address] [place] [address] VIR Hematocrit (Bld) [Volume fraction] 37.6 % Normal 35-47 [facility] Comment on above: Performed By: #### C BCA #### [facility] ([facility]) [address] [place] [address] VIR Hemoglobin (Bld) [Mass/Vol] 12.8 g/dL Normal 11.7-15.5 [facility] Comment on above: Performed By: #### C BCA #### [facility] ([facility]) [address] [place] [address] VIR MCH (RBC) [Entitic mass] 28.5 pg Normal 27-34 [facility] Comment on above: Performed By: #### C BCA #### [facility] ([facility]) [address] [place] [address] VIR MCHC (RBC) [Mass/Vol] 33.9 g/dL Normal 32-36 [facility] Comment on above: Performed By: #### C BCA #### [facility] ([facility]) [address] [place] [address] VIR MCV (RBC) [Entitic vol] 84 fL Normal 80-100 [facility] Comment on above: Performed By: #### C BCA #### [facility] ([facility]) [address] [place] [address] VIR Platelet mean volume (Bld) [Entitic vol] 10.3 fL Normal 7-12 [facility] Comment on above: Performed By: #### C BCA #### [facility] ([facility]) [address] [place] [address] VIR Platelets (Bld) [#/Vol] 192 10*3/uL Normal 150-450 [facility] Comment on above: Performed By: #### C BCA #### [facility] ([facility]) [address] [place] [address] VIR RBC COUNT 4.47 X10E12/L Normal 3.8-5.2 [facility] Comment on above: Performed By: #### C BCA #### [facility] ([facility]) [address] [place] [address] VIR WBC (Bld) [#/Vol] 5.9 10*3/uL Normal 4-11 [facility] Comment on above: Performed By: #### C BCA #### [facility] ([facility]) [address] [place] [address] VIR COMPREHENSIVE METABOLIC PANE Efra 04-30-2025 Albumin [Mass/Vol] 4.2 g/dL Normal 3.2-5.3 [facility] Comment on above: Performed By: #### C MP #### [facility] ([facility]) [address] [place] [address] VIR ALP [Catalytic activity/Vol] 102 U/L Normal 39-130 [facility] Comment on above: Performed By: #### C MP #### [facility] ([facility]) [address] [place] [address] VIR ALT [Catalytic activity/Vol] 46 U/L High <=31 [facility] Comment on above: Performed By: #### C MP #### [facility] ([facility]) [address] [place] [address] VIR Anion gap [Moles/Vol] 7 mmol/L Normal 5-15 [facility] Comment on above: Performed By: #### C MP #### [facility] ([facility]) [address] [place] [address] VIR AST [Catalytic activity/Vol] 30 U/L Normal <=41 [facility] Comment on above: Performed By: #### C MP #### [facility] ([facility]) [address] [place] [address] VIR Bilirubin [Mass/Vol] 1.1 mg/dL Normal 0.3-1.2 [facility] Comment on above: Performed By: #### C MP #### [facility] ([facility]) [address] [place] [address] VIR Calcium [Mass/Vol] 8.9 mg/dL Normal 8.5-10.5 [facility] Comment on above: Performed By: #### C MP #### [facility] ([facility]) [address] [place] [address] VIR Chloride [Moles/Vol] 103 mmol/L Normal 98-109 [facility] Comment on above: Performed By: #### C MP #### [facility] ([facility]) [address] [place] [address] VIR CO2 [Moles/Vol] 27 mmol/L Normal 22-32 [facility] Comment on above: Performed By: #### C MP #### [facility] ([facility]) [address] [place] [address] VIR Creatinine [Mass/Vol] 0.87 mg/dL Normal 0.40-1.00 [facility] Comment on above: Result Comment: METH OD TRACEABLE TO IDMS STANDARD Performed By: #### C MP #### [facility] ([facility]) [address] [place] [address] VIR EGFR (CKD-EPI) NON-RACE DEPENDENT >^90 Normal >=60 [facility] Comment on above: Result Comment: Repo rted eGFR is based on the CKD-EPI 2020 equation that does not use a race coefficient. EGFR not calculated due to patient's gender not being defined. Performed By: #### C MP #### [facility] ([facility]) [address] [place] [address] VIR Glucose [Mass/Vol] 100 mg/dL High 65-99 [facility] Comment on above: Performed By: #### C MP #### [facility] ([facility]) [address] [place] [address] VIR Potassium [Moles/Vol] 3.9 mmol/L Normal 3.5-5.0 [facility] Comment on above: Performed By: #### C MP #### [facility] ([facility]) [address] [place] [address] VIR Protein [Mass/Vol] 7.2 g/dL Normal 6.0-8.0 [facility] Comment on above: Performed By: #### C MP #### [facility] ([facility]) [address] [place] [address] VIR Sodium [Moles/Vol] 137 mmol/L Normal 134-146 [facility] Comment on above: Performed By: #### C MP #### [facility] ([facility]) [address] [place] [address] VIR Urea nitrogen [Mass/Vol] 9 mg/dL Normal 5-23 [facility] Comment on above: Performed By: #### C MP #### [facility] ([facility]) [address] [place] [address] VIR HEMOGLOBIN A1Con 04-30-2025 Glucose [Mass/Vol] 91 mg/dL Normal [facility] Comment on above: Performed By: #### H A1C #### [facility] ([facility]) [address] [place] [address] VIR HbA1c (Bld) [Mass fraction] 4.8 % Normal 4.4-5.6 [facility] Comment on above: Result Comment: ADA Guidelines Result HgbA1c Normal : less than 5.7 % Prediabetes : 5.7 % to 6.4 % Diabetes : > 6.4 % Use with caution in patients with abnormal hemoglobin variants as the half-life of red blood cells and in vivo glycation rates are affected. Performed By: #### H A1C #### [facility] ([facility]) [address] [place] [address] VIR LIPID PROFILEon 04-30-2025 Cholesterol [Mass/Vol] 167 mg/dL Normal 150-200 [facility] Comment on above: Performed By: #### L IPR #### [facility] [facility] [address] [place] [address] VIR Cholesterol in HDL [Mass/Vol] 49 mg/dL Normal >39 [facility] Comment on above: Result Comment: HDL <40 mg/dL - High Risk HDL > or = 40mg/dL- Desirable HDL >60 mg/dL - Negative Risk Performed By: #### L IPR #### [facility] ([facility]) [address] [place] [address] VIR Cholesterol in LDL [Mass/Vol] 68 mg/dL Normal <130 [facility] Comment on above: Result Comment: LDL <100 mg/dL - Desirable LDL >160 mg/dL - High Risk Performed By: #### L IPR #### [facility] ([facility]) [address] [place] [address] VIR CHOLESTEROL:HDL 3.4 Normal 1.0-5.0 [facility] Comment on above: Performed By: #### L IPR #### [facility] ([facility]) [address] [place] [address] VIR Triglyceride [Mass/Vol] 248 mg/dL High 27-150 [facility] Comment on above: Performed By: #### L IPR #### [facility] ([facility]) [address] [place] [address] VIR VERY LOW LIPOPROTEIN 50 mg/dL High 0-30 [facility] Comment on above: Performed By: #### L IPR #### [facility] ([facility]) [address] [place] [address] VIR MAGNESIUMon 04-30-2025 Magnesium [Mass/Vol] 2.1 mg/dL Normal 1.8-2.6 [facility] Comment on above: Performed By: #### M G #### [facility] ([facility]) [address] [place] [address] VIR T3, FREEon 04-30-2025 Free T3 [Mass/Vol] 4.15 pg/mL High 2.50-3.90 [facility] Comment on above: Performed By: #### F T3 #### [facility] ([facility]) [address] [place] [address] VIR THYROID PROFILE INCLUDES TSH FT4on 04-30-2025 Free T4 [Mass/Vol] 0.99 ng/dL Normal 0.61-1.60 [facility] Comment on above: Performed By: #### T HYR #### [facility] ([facility]) [address] [place] [address] VIR TSH 1.42 uIU/mL Normal 0.49-4.67 [facility] Comment on above: Performed By: #### T HYR #### [facility] ([facility]) [address] [place] [address] VIR VITAMIN B12on 04-30-2025 Cobalamin (Vitamin B12) [Mass/Vol] 434 pg/mL Normal 180-914 [facility] Comment on above: Performed By: #### B 12 #### [facility] ([facility]) [address] [place] [address] VIR VITAMIN D 25 HYDROXYon 04-30 VITAMIN D 25 HYD TOT 32.2 ng/mL Normal 30.0-100.0 [facility] Comment on above: Order Comment: Vitam in D status 25 [place] Vitamin D Deficiency <20 ng/mL Insufficiency 20-29 ng/mL Sufficiency 30-100 ng/mL Toxicity >100 ng/mL NOTE: A pediatric reference range has not been established by the supervisor heat treating of this kit. The [place] [employer] recommends a Vitamin D level of = or >20ng/mL in infants and children. Performed By: #### V ITD #### [facility] ([facility]) [address] [place] [address] VIR RECURRENT VAGINITIS (HTRX)on 08-31-2024 ATOPOBIUM VAGINAE 0 [facility] ATOPOBIUM VAGINAE Not detected [facility] BVAB 2,3 (BACTERIAL VAGINOSIS ASSOCIATED BACTERIA 2, 3); MOBILUNCUS SPP 0 [facility] BVAB 2,3 (BACTERIAL VAGINOSIS ASSOCIATED BACTERIA 2, 3); MOBILUNCUS SPP Not detected [facility] GLENDY ALBICANS, PARAPSILOSIS, TROPICALIS 0 [facility] GLENDY ALBICANS, PARAPSILOSIS, TROPICALIS Not detected [facility] GLENDY GLABRATA 0 [facility] GLENDY GLABRATA Not detected [facility] GLENDY KRUSEI 0 [facility] GLENDY KRUSEI Not detected [facility] CHLAMYDIA TRACHOMATIS 0 [facility] CHLAMYDIA TRACHOMATIS Not detected [facility] GARDNERELLA VAGINALIS 0 [facility] GARDNERELLA VAGINALIS Not detected [facility] MEGASPHAERA (TYPES 1, 2) 0 [facility] MEGASPHAERA (TYPES 1, 2) Not detected [facility] MYCOPLASMA GENITALIUM 0 [facility] MYCOPLASMA GENITALIUM Not detected [facility] NEISSERIA GONORRHOEAE 0 [facility] NEISSERIA GONORRHOEAE Not detected [facility] TRICHOMONAS VAGINALIS 0 [facility] TRICHOMONAS VAGINALIS Not detected [facility] No Panel InformationOrdered By: Lara Du on 04-09-2024 Quick Strep (POC) [facility] - Chemistry and C hemistry - challengeon 11-20-2023 Free T4 [Mass/Vol] 0.96 ng/dL 0.76-1.46 [facility] TSH Qn 3.913 m[IU]/L 0.358-3.740 [facility] Serum or plasma thyroperoxid ase antibody assay (units/volume)on 11-20-2023 TPO Ab Qn [IU]/mL 0-34 [facility] Thyroglobulin [Mass/volume] in Serum or Plasmaon 11-20-2023 Thyroglobulin [Mass/Vol] <1.0 [IU]/mL 0.0-0.9 [facility] Comment on above: Thyroglobulin Antibo dy measured by Clemente CoulterMethodologyIt should be noted that the presence of thyroglobulinantibodies may not be pathogenic nor diagnostic, especiallyat very low levels. The assay supervisor heat treating has found thatfour percent of individuals without evidence of thyroiddisease or autoimmunity will have positive TgAb levels upto 4 IU/mL.Performed at: [facility] [id number] Director: Mark Brown PhD, Phone: [phone] CHLAMYDIA/GONOCOCCUS CELE (SW AB/URINE/PAPon 09-01-2022 Chlamydia trachomatis, CELE Negative Normal Negative [facility] Comment on above: Performed By: #### C T/NGNA #### [facility] [address] [place] [address] Dr. Anthony Robert Neisseria gonorrhoeae, CELE Negative Normal Negative [facility] Comment on above: Performed By: #### C T/NGNA #### [facility] [address] [place] [address] Dr. Anthony Robert VAGINITIS/VAGINOSIS DNA PROB Randall 08-31-2022 Glendy species Negative Normal Negative [facility] Comment on above: Performed By: #### V AGINT #### [facility] [address] [place] [address] Dr. Anthony Robert Gardnerella vaginalis Negative Normal Negative [facility] Comment on above: Performed By: #### V AGINT #### [facility] [address] [place] [address] Dr. Anthony Robert Trichomonas vaginalis Negative Normal Negative [facility] Comment on above: Performed By: #### V AGINT #### [facility] [address] [place] [address] Dr. Anthony Robert US PELVIS AND TRANSVAGon [...] DRAKE WOODY Date: 2022-08-29 22:46 Normal [facility] CHLAMYDIA/GONOCOCCUS CELE (SW AB/URINE/PAPon 05-12-2022 Chlamydia trachomatis, CELE Negative Normal Negative [facility] Comment on above: Performed By: #### C T/NGNA #### [facility] [address] [place] [address] Dr. Anthony Robert Neisseria gonorrhoeae, CELE Negative Normal Negative [facility] Comment on above: Performed By: #### C T/NGNA #### [facility] [address] [place] [address] Dr. Anthony Robert VAGINITIS/VAGINOSIS DNA PROB Randall 05-11-2022 Glendy species Negative Normal Negative [facility] Comment on above: Performed By: #### V AGINT #### [facility] [address] [place] [address] Dr. Anthony Robert Gardnerella vaginalis Negative Normal Negative [facility] Comment on above: Performed By: #### V AGINT #### [facility] [address] [place] [address] Dr. Anthony Robert Trichomonas vaginalis Negative Normal Negative [facility] Comment on above: Performed By: #### V AGINT #### [facility] [address] [place] [address] Dr. Anthony Robert CBC AUTO DIFFon 10-12-2021 BASO # 0.0 103/ul Normal 0.0-0.1 [facility] Comment on above: Performed By: #### C BC #### [facility] [address] [place] [address] Dr. Anthony Robert Basophils/100 WBC (Bld) 0.3 % Normal 0.2-2.0 [facility] Comment on above: Performed By: #### C BC #### [facility] [address] [place] [address] Dr. Anthony Robert EO # 0.2 103/ul Normal 0.0-0.7 [facility] Comment on above: Performed By: #### C BC #### [facility] [address] [place] [address] Dr. Anthony Robert Eosinophils/100 WBC (Bld) 1.9 % Normal 0.9-7.0 [facility] Comment on above: Performed By: #### C BC #### [facility] [address] [place] [address] Dr. Anthony Robert Erythrocyte distribution width (RBC) [Ratio] 12.3 % Normal 11.0-15.0 [facility] Comment on above: Performed By: #### C BC #### [facility] [address] [place] [address] Dr. Anthony Robret Hematocrit (Bld) [Volume fraction] 45.2 % Normal 36.0-48.0 [facility] Comment on above: Performed By: #### C BC #### [facility] [address] [place] [address] Dr. Anthony Robert Hemoglobin (Bld) [Mass/Vol] 14.7 g/dL Normal 12.0-16.0 [facility] Comment on above: Performed By: #### C BC #### [facility] [address] [place] [address] Dr. Anthony Robert IG # 0.03 10e3/ul Normal 0.00-0.03 [facility] Comment on above: Performed By: #### C BC #### [facility] [address] [place] [address] Dr. Anthony Robert IG % 0.3 % Normal 0.0-0.5 [facility] Comment on above: Performed By: #### C BC #### [facility] [address] [place] [address] Dr. Anthony Robert LYMPH # 4.0 103/ul Critically high 1.2-3.8 [facility] Comment on above: Performed By: #### C BC #### [facility] [address] [place] [address] Dr. Anthony Robert Lymphocytes/100 WBC (Bld) 33.6 % Normal 20.5-60.0 [facility] Comment on above: Performed By: #### C BC #### [facility] [address] [place] [address] Dr. Anthony Robert MANUAL DIFF REQ NO Normal [facility] Comment on above: Performed By: #### C BC #### [facility] [address] [place] [address] Dr. Anthony Robert MCH (RBC) [Entitic mass] 27.8 pg Normal 26.7-34.0 [facility] Comment on above: Performed By: #### C BC #### [facility] [address] [place] [address] Dr. Anthoyn Robert MCHC (RBC) [Mass/Vol] 32.5 g/dL Normal 29.9-35.2 [facility] Comment on above: Performed By: #### C BC #### [facility] [address] [place] [address] Dr. Anthony Robert MCV (RBC) [Entitic vol] 85.6 fL Normal 81.0-99.0 [facility] Comment on above: Performed By: #### C BC #### [facility] [address] [place] [address] Dr. Anthony oRbert MONO # 0.6 103/ul Normal 0.3-0.8 [facility] Comment on above: Performed By: #### C BC #### [facility] [address] [place] [address] Dr. Anthony Robert Monocytes/100 WBC (Bld) 5.2 % Normal 1.7-12.0 [facility] Comment on above: Performed By: #### C BC #### [facility] [address] [place] [address] Dr. Anthony Robert NEUT # 6.9 103/ul Critically high 1.4-6.5 [facility] Comment on above: Performed By: #### C BC #### [facility] [address] [place] [address] Dr. Anthony Robert Neutrophils/100 WBC (Bld) 58.7 % Normal 43.0-75.0 [facility] Comment on above: Performed By: #### C BC #### [facility] [address] [place] [address] Dr. Anthony Robert Platelet mean volume (Bld) [Entitic vol] 11.7 fL Normal 9.5-13.5 [facility] Comment on above: Performed By: #### C BC #### [facility] [address] [place] [address] Dr. Anthony Robert PLT 281 103/ul Normal 150-450 [facility] Comment on above: Performed By: #### C BC #### [facility] [address] [place] [address] Dr. Anthony Robert RBC 5.28 106/ul Normal 4.20-5.40 [facility] Comment on above: Performed By: #### C BC #### [facility] [address] [place] [address] Dr. Anthony Robert WBC 11.8 103/ul Critically high 4.0-11.0 [facility] Comment on above: Performed By: #### C BC #### [facility] [address] [place] [address] Dr. Anthony Robert ER URINE PROFILEon 2 Bilirubin Ql (U) Negative Normal NEGATIVE [facility] Comment on above: Performed By: #### E RUR #### [facility] [address] [place] [address] Dr. Anthony Robert Clarity (U) CLEAR Normal CLEAR [facility] Comment on above: Performed By: #### E RUR #### [facility] [address] [place] [address] Dr. Anthony Robert Color (U) YELLOW Normal YELLOW [facility] Comment on above: Performed By: #### E RUR #### [facility] [address] [place] [address] Dr. Anthony Robert ERUAHAlvina A micrscopic examina tion will be performed if indicated. Normal [facility] Comment on above: Performed By: #### E RUR #### [facility] [address] [place] [address] Dr. Anthony Robert Glucose Ql (U) Negative Normal NEGATIVE [facility] Comment on above: Performed By: #### E RUR #### [facility] [address] [place] [address] Dr. Anthony Robert Hemoglobin Ql (U) Negative Normal NEGATIVE [facility] Comment on above: Performed By: #### E RUR #### [facility] [address] [place] [address] Dr. Anthony Robert Ketones Ql (U) Negative Normal NEGATIVE [facility] Comment on above: Performed By: #### E RUR #### [facility] [address] [place] [address] Dr. Anthony Robert LEUKOCYTES Negative Normal NEGATIVE [facility] Comment on above: Performed By: #### E RUR #### [facility] [address] [place] [address] Dr. Anthony Robert Nitrite Ql (U) Negative Normal NEGATIVE [facility] Comment on above: Performed By: #### E RUR #### [facility] [address] [place] [address] Dr. Anthony Robert pH (U) 6.0 [pH] Normal 5-9 [facility] Comment on above: Performed By: #### E RUR #### [facility] [address] [place] [address] Dr. Anthony Robert SPEC GRAVITY >=1.030 Abnormal 1.005-<=1.0 25 [facility] Comment on above: Performed By: #### E RUR #### [facility] [address] [address] [address] Anthony Robert UA PROTEIN Negative Normal NEGATIVE/ TRACE [facility] Comment on above: Performed By: #### E RUR #### [facility] [address] [address] [address] Anthony Robert UR MICRO IND NOT INDICATED Normal [facility] Comment on above: Performed By: #### E RUR #### [facility] [address] [address] [address] Anthony Robert Urobilinogen Qn (U) 0.2 {Chaz'U}/dL Normal 0.2 - 1. 0 [facility] Comment on above: Performed By: #### E RUR #### [facility] [address] [place] [address] Dr. Anthony Robert LIPASEon 10-12-2021 Lipase [Catalytic activity/Vol] 63.0 U/L Normal 23.0-300.0 [facility] Comment on above: Performed By: #### L IPA, CMP #### [facility] [address] [place] [address] Dr. Anthony Robert PREG HCG QUALon 10-12-2021 , QUAL Negative Normal NEGATIVE [facility] Comment on above: Performed By: #### P REG #### [facility] [address] [place] [address] Dr. Anthony Robert PROF 14(COMP METB)on 022 Albumin [Mass/Vol] 4.0 g/dL Normal 3.5-5.0 [facility] Comment on above: Performed By: #### L IPA, CMP ####[facility] [address] [address]Dr. Anthony Robert Albumin/Globulin [Mass ratio] 1.0 {ratio} Normal [facility] Comment on above: Performed By: #### L IPA, CMP ####[facility] [address] [address]Dr. Anthony Robert ALP [Catalytic activity/Vol] 81 U/L Normal 38-126 [facility] Comment on above: Performed By: #### L IPA, CMP ####[facility] [address] [id number]. Anthony Robert ALT [Catalytic activity/Vol] 43 U/L Normal 9-52 [facility] Comment on above: Performed By: #### L IPA, CMP ####[facility] [address] [id number]. Anthony Robert Anion gap [Moles/Vol] 14.6 mmol/L Normal [facility] Comment on above: Performed By: #### L IPA, CMP ####[facility] [address] [id number]. Anthony Robert AST [Catalytic activity/Vol] 19 U/L Normal 14-36 [facility] Comment on above: Performed By: #### L IPA, CMP ####[facility] [address] [place], [place] [address]Dr. Anthony Robert Bilirubin [Mass/Vol] 0.4 mg/dL Normal 0.2-1.3 [facility] Comment on above: Performed By: #### L IPA, CMP ####[facility] [address] [place], [place] [address]Dr. Anthony Robert Calcium [Mass/Vol] 9.7 mg/dL Normal 8.4-10.2 [facility] Comment on above: Performed By: #### L IPA, CMP ####[facility] [address] [place], [place] [address]Dr. Anthony Robert Chloride [Moles/Vol] 101 mmol/L Normal 98-107 [facility] Comment on above: Performed By: #### L IPA, CMP ####[facility] [address] [place], [place] [address]Dr. Anthony Robert CO2 [Moles/Vol] 23.7 mmol/L Normal 22.0-30.0 [facility] Comment on above: Performed By: #### L IPA, CMP ####[facility] [address] [place], [place] [address]Dr. Anthony Robert Creatinine [Mass/Vol] 0.85 mg/dL Normal 0.52-1.04 [facility] Comment on above: Performed By: #### L IPA, CMP ####[facility] [address] [address]Dr. Anthony Robert EGFR-AF ANDORRAN >60 Normal >=60 [facility] Comment on above: Performed By: #### L IPA, CMP ####[facility] [address] [id number]. Anthony Robert EGFR-NON AF ANDORRAN >60 Normal >=60 [facility] Comment on above: Performed By: #### L IPA, CMP ####[facility] [address] [id number][address] Anthony Robert Globulin (S) [Mass/Vol] 4.0 g/dL Normal [facility] Comment on above: Performed By: #### L IPA, CMP ####[facility] [address] [place], [place] [address]Dr. Malikaelle Robert Glucose [Mass/Vol] 96 mg/dL Normal 74-106 [facility] Comment on above: Performed By: #### L IPA, CMP ####[facility] [address] [place], [place] [address]Dr. Anthony Robert Potassium [Moles/Vol] 4.3 mmol/L Normal 3.4-5.0 [facility] Comment on above: Performed By: #### L IPA, CMP ####[facility] [address] [place], [place] [address]Dr. Anthony Robert Protein [Mass/Vol] 8.0 g/dL Normal 6.1-8.2 [facility] Comment on above: Performed By: #### L IPA, CMP ####[facility] [address] [place], [place] [address]Dr. Anthony Robert Sodium [Moles/Vol] 135 mmol/L Critically low 137-145 [facility] Comment on above: Performed By: #### L IPA, CMP ####[facility] [address] [place], [place] [address]Dr. Malikaelle Robert Urea nitrogen [Mass/Vol] 12.0 mg/dL Normal 6.4-19.3 [facility] Comment on above: Performed By: #### L IPA, CMP ####[facility] [address] [place], [place] [address]AhAlecia Robert Urea nitrogen/Creatinine [Mass ratio] 14.1 mg/mg Normal [facility] Comment on above: Performed By: #### L IPA, CMP ####[facility] [address] [place], [place] [address]Zf. Anthony Robert XR KUB 1 VIEWon 10-12-2021 XR KUB [...] by: ALYSSA LAURA Date: 2021-10-12 18:28 Normal [facility] ECG 12 lead ECGon 12-27-2020 ECG 12 lead ECG [facility] Main [place] [address] [place] [address] Electrocardiograph Report Signed Patient: Alondra Ruiz MR#: [id number] : 2000 Acct:[id number] Age/Sex: 20 / F ADM Date: 12/26/20 Loc: Room: [address] [place] [address] Type: ADM IN Attending Dr: Ishan Fischer [...] Calderón DO 12/27/20 0751 Signed By: 12/27/20 1709 Normal [facility] Lipid Panelon 12-27-2020 Cholesterol [Mass/Vol] 178 mg/dL Normal 140-200 [facility] Comment on above: Result Comment: Chol less than 200 mg/dl low risk Chol 201-239 mg/dl borderline risk Chol 240 mg/dl and greater high risk Performed By: #### L IPID, TSH3 wRFLX, [id number] #### [facility] [address] [id number] [place] Cholesterol in HDL [Mass/Vol] 47 mg/dL Normal 35-85 [facility] Comment on above: Result Comment: HDL CHOL ATP-III CLASSIFICATION Cardiovascular Risk HDL > or equal to 60 mg/dL LOW HDL < 40 mg/dL HIGH Performed By: #### L IPID, TSH3 wRFLX, [id number] #### [facility] [address] [place] [address] [place] Cholesterol.total/Cho lesterol in HDL [Mass ratio] 3.8 {ratio} Normal <5.0 [facility] Comment on above: Performed By: #### L IPID, TSH3 wRFLX, [id number] #### [facility] [address] [place] [address] [place] LDL Cholesterol,Calculate d 110 mg/dL High 0-100 [facility] Comment on above: Result Comment: LDL ATP III CLASSIFICATION LDL less than 100 mg/dL Optimal LDL 100-129 mg/dL Near or above optimal LDL 130-159 mg/dL Borderline high LDL 160-189 mg/dL High LDL greater than 189 mg/dL Very high Performed By: #### L IPID, TSH3 wRFLX, [id number] #### [facility] [address] [place] [address] [place] Triglyceride w/Reflex 105 mg/dL Normal 35-149 [facility] Comment on above: Result Comment: TRIG ATP III CLASSIFICATION TRIG less than 150 mg/dL Normal TRIG 150-199 mg/dL Borderline high TRIG 200-500 mg/dL High TRIG greater than 500 mg/dL Very high Standard traceable to the Center for Disease Conrtrol and Prevention (CDC) test method. Performed By: #### L IPID, TSH3 wRFLX, [id number] #### [address] VLDL CHOLESTEROL 21 mg/dL Normal [facility] Comment on above: Performed By: #### L IPID, TSH3 wRFLX, [id number] #### [address] Thyroid Stim Hormone w/Rflxo n 12-27-2020 Thyroid Stim Hormone w/Rflx 2.68 u[iU]/mL Normal 0.45-5.33 [facility] Comment on above: Performed By: #### L IPID, TSH3 wRFLX, [id number] #### [address] Vitamin D 25 Hydroxy Totalon 12-27-2020 Vitamin D 25 Hydroxy Total 27.7 ng/mL Low 30-100 [facility] Comment on above: Result Comment: NANCY MIN D STATUS 25(OH)VITAMIN D RANGE (ng/mL) Deficient <20 Insufficient 20 to <30 Sufficient 30 to 100 Reference: Cierra MF,Emma NC, Julianne MACIAS, et al. Evaluation,treatment, and prevention of vitamin D deficiency; an Endocrine Society clinical practice guideline. JCEM. 2010; 96(7):1911-30. PERFORMED BY: [place] [address] PATHOLOGIST DEPUTY BAILIFF RYAN SCHREIBER M.D. Performed By: #### L IPID, TSH3 wRFLX, [id number] #### [address] Vital Signs Date Time Vital Sign Value Performing Clinician Facility 05-21-2025 10: Body mass index (BMI) [Ratio] 33.05 kg/m2 Franca Lynn NP Work Phone: [facility] 05-21-2025 10: Body weight 92.87 kg Franca Lynn NP Work Phone: [facility] 05-21-2025 10:19-0400 Diastolic blood pressure 82 mm[Hg] Franca Lynn CHIEF DISPATCHER Work Phone: [facility] 05-21-2025 10:19-0400 Systolic blood pressure 110 mm[Hg] Franca Lynn CHIEF DISPATCHER Work Phone: [facility] 01-13-2025 09:41-0400 Body height 167.6 cm Stu Quinones MD Work Phone: [facility] 01-13-2025 09:41-0400 Body mass index (BMI) [Ratio] 34.22 kg/m2 Stu Quinones MD Work Phone: [facility] 01-13-2025 09:41-0400 Body weight 96.16 kg Stu Quinones MD Work Phone: [facility] 01-13-2025 09:41-0400 Diastolic blood pressure 84 mm[Hg] Stu Quinones MD Work Phone: [facility] 01-13-2025 09:41-0400 Heart rate 88 /min Stu Quinones MD Work Phone: [facility] 01-13-2025 09:41-0400 Respiratory rate 18 /min Stu Quinones MD Work Phone: [facility] 01-13-2025 09:41-0400 SaO2% (BldA) [Mass fraction] 98 % Stu Quinones MD Work Phone: [facility] 01-13-2025 09:41-0400 Systolic blood pressure 110 mm[Hg] Stu Quinones MD Work Phone: [facility] 08-29-2024 14:19-0500 Body mass index (BMI) [Ratio] 33.15 kg/m2 Tanja WHITE Work Phone: [facility] 08-29-2024 14:19-0500 Body weight 93.17 kg Tanja WHITE Work Phone: [facility] 08-29-2024 14:19-0500 Diastolic blood pressure 80 mm[Hg] Tanja WHITE Work Phone: [facility] 08-29-2024 14:19-0500 Systolic blood pressure 120 mm[Hg] Tanja WHITE Work Phone: [facility] 04-09-2024 12:47-0400 Body height 167.64 cm [facility] 04-09-2024 12:47-0400 Body mass index (BMI) [Ratio] 36.5 kg/m2 [facility] 04-09-2024 12:47-0400 Body temperature 98.9 [degF] [facility] 04-09-2024 12:47-0400 Body weight 102.68 kg [facility] 04-09-2024 12:47-0400 Diastolic blood pressure 85 mm[Hg] [facility] 04-09-2024 12:47-0400 Heart rate 90 /min [facility] 04-09-2024 12:47-0400 Respiratory rate 16 /min [facility] 04-09-2024 12:47-0400 SaO2% (BldA) [Mass fraction] 96 % [facility] 04-09-2024 12:47-0400 Systolic blood pressure 123 mm[Hg] [facility] 12-11-2023 09:38-0400 Body height 167.64 cm [facility] 12-11-2023 09:38-0400 Body mass index (BMI) [Ratio] 37.5 kg/m2 [facility] 12-11-2023 09:38-0400 Body weight 105.46 kg [facility] 12-11-2023 09:38-0400 Diastolic blood pressure 82 mm[Hg] [facility] 12-11-2023 09:38-0400 Heart rate 81 /min [facility] 12-11-2023 09:38-0400 Systolic blood pressure 123 mm[Hg] [facility] 11-20-2023 11:01-0400 Body height 167.64 cm [facility] 11-20-2023 11:01-0400 Body mass index (BMI) [Ratio] 37.6 kg/m2 [facility] 11-20-2023 11:01-0400 Body weight 105.8 kg [facility] 11-20-2023 11:01-0400 Diastolic blood pressure 88 mm[Hg] [facility] 11-20-2023 11:01-0400 Heart rate 88 /min [facility] 11-20-2023 11:01-0400 SaO2% (BldA) [Mass fraction] 99 % [facility] 11-20-2023 11:01-0400 Systolic blood pressure 126 mm[Hg] [facility] 08-07-2023 09:15-0500 Body height 167.64 cm [facility] Other [employer] [facility] Other 08-07-2023 09:15-0500 Body mass index (BMI) [Ratio] 36.7 kg/m2 [facility] Other [facility] Other 08-07-2023 09:15-0500 Body weight 103.15 kg Arely Sen Other [facility] Other 08-07-2023 09:15-0500 Diastolic blood pressure 89 mm[Hg] Arely Sen Other [facility] Other 08-07-2023 09:15-0500 Systolic blood pressure 134 mm[Hg] Arely Sen Other [facility] Other 05-08-2023 08:45-0400 Body height 167.64 cm Arely Sen Other [facility] Other 05-08-2023 08:45-0400 Body mass index (BMI) [Ratio] 39.22 kg/m2 Arely Sen Other [facility] Other 05-08-2023 08:45-0400 Body weight 110.22 kg Arely Sen Other [facility] Other 05-08-2023 08:45-0400 Diastolic blood pressure 89 mm[Hg] Arely Sen Other [facility] Other 05-08-2023 08:45-0400 Systolic blood pressure 133 mm[Hg] Arely Sen Other [facility] Other 04-17-2023 11:00-0400 Body height 167.64 cm Arely Sen Other [facility] Other 04-17-2023 11:00-0400 Body mass index (BMI) [Ratio] 39.7 kg/m2 Arely Sen Other [facility] Other 04-17-2023 11:00-0400 Body weight 111.59 kg Arely Sen Other [facility] Other 04-17-2023 11:00-0400 Diastolic blood pressure 94 mm[Hg] Arely Sen Other [facility] Other 04-17-2023 11:00-0400 Systolic blood pressure 134 mm[Hg] Arely Sen Other [facility] Other 03-13-2023 10:00-0400 Body height 160.66 cm Arely Sen Other [facility] Other 03-13-2023 10:00-0400 Body mass index (BMI) [Ratio] 44.46 kg/m2 [facility] Other [facility] Other 03-13-2023 10:00-0400 Body weight 114.76 kg Arely Sen Other [facility] Other 03-13-2023 10:00-0400 Diastolic blood pressure 91 mm[Hg] Arely Sen Other [facility] Other 03-13-2023 10:00-0400 Systolic blood pressure 127 mm[Hg] Arely Sen Other [facility] Other 02-13-2023 10:00-0400 Body height 160.66 cm Arely Sen Other [facility] Other 02-13-2023 10:00-0400 Body mass index (BMI) [Ratio] 47.09 kg/m2 Arely Sen Other [facility] Other 02-13-2023 10:00-0400 Body weight 121.56 kg Arely Sen Other [facility] Other 02-13-2023 10:00-0400 Diastolic blood pressure 79 mm[Hg] Arely Sen Other [facility] Other 02-13-2023 10:00-0400 Systolic blood pressure 134 mm[Hg] A[facility] Other [facility] Other Encounters Encounter Date Encounter Type Care Provider Facility Start: 05-21-2025 End: 05-21-2025 Patient encounter procedure Franca Lynn NP Work Phone: [facility] Start: 05-21-2025 End: 05-21-2025 Periodic preventive med est patient 18-39 yrs Franca Lynn NP Work Phone: [facility] Comment on above: Well woman exam with routine gynecological exam; STD exposure; Vaginal itching Start: 04-30-2025 ambulatory ST[facility] Start: 04-30-2025 Encounter for genera l adult medical examination without abnormal findings TSU QUINONES [facility] Start: 01-13-2025 End: 01-13-2025 Bamboo flowsheet Stu Quinones MD Work Phone: [facility] Start: 01-13-2025 End: 01-13-2025 Bamboo flowsheet Stu Quinones MD Work Phone: [facility] Start: 01-13-2025 End: 01-13-2025 ambulatory STU QUINONES Not Available Start: 01-13-2025 End: 01-13-2025 Office outpatient visit 25 minutes Stu Quinones MD Work Phone: [facility] Comment on above: Anti-TPO antibodies present (Primary Dx); Vitamin D deficiency; Encounter for dietary consultation; Class 1 obesity due to excess calories without serious comorbidity with body mass index (BMI) of 34.0 to 34.9 in adult Start: 08-29-2024 End: 08-29-2024 Bamboo flowsheet Tanja WHITE Work Phone: [facility] Start: 08-29-2024 End: 08-31-2024 Bamboo flowsheet Tanja WHITE Work Phone: [facility] Start: 08-29-2024 End: 08-31-2024 External Result Encounter Tanja WHITE Work Phone: [facility] External Department Unsolicited Start: 08-29-2024 End: 08-29-2024 ambulatory TANJA VANG Not Available Start: 08-29-2024 End: 08-29-2024 Office outpatient visit 15 minutes Tanja WHITE Work Phone: [facility] Comment on above: Exposure to STD; Vaginal discharge Start: 04-09-2024 End: 04-09-2024 ambulatory [facility] Work Phone: Start: 04-09-2024 End: 04-09-2024 Patient encounter procedure [facility] Work Phone: Start: 12-11-2023 End: 12-11-2023 ambulatory [facility] Work Phone: Start: 12-11-2023 End: 12-11-2023 Patient encounter procedure [facility] Work Phone: Start: 11-20-2023 End: 11-20-2023 Patient encounter procedure [facility] Phys[facility] Work Phone: Start: 10-17-2023 End: 10-17-2023 ambulatory [facility]rely Sen Other [facility] Other Start: 10-17-2023 Telephone encounter Arelyfranck Sen [facility] Start: 10-16-2023 End: 10-16-2023 ambulatory Arely Sen Other [facility] Other Start: 10-16-2023 Telephone encounter Arelyfranck Sen [facility] Start: 09-13-2023 End: 09-13-2023 ambulatory Arely Sen Other [facility] Other Start: 09-13-2023 Telephone encounter Arely Francy [facility] Start: 08-08-2023 End: 08-08-2023 ambulatory Arely Francy Other [facility] Other Start: 08-08-2023 Telephone encounter Arely Francy [facility] Start: 08-07-2023 End: 08-07-2023 ambulatory Arely Francy Other [facility] Other Start: 08-07-2023 Office outpatient vi sit 15 minutes Arely Sen [facility] Start: 05-08-2023 End: 05-08-2023 ambulatory Arely Sen Other [facility] Other Start: 05-08-2023 Office outpatient vi sit 15 minutes Arely Sen [facility] Start: 04-17-2023 End: 04-17-2023 ambulatory Arely Sen Other [facility] Other Start: 04-17-2023 Office outpatient vi sit 15 minutes Arely Sen [facility] Start: 04-10-2023 End: 04-10-2023 ambulatory Arely Sen Other [facility] Other Start: 04-10-2023 Telephone encounter Arely Sen [employer] Start: 03-13-2023 End: 03-13-2023 ambulatory Arely Sen Other [facility] Other Start: 03-13-2023 Office outpatient vi sit 15 minutes Arely Sen [facility] Start: 02-13-2023 End: 02-13-2023 ambulatory Arely Sen Other [facility] Other Start: 02-13-2023 Office outpatient vi sit 15 minutes Arely Sen [facility] Start: 08-29-2022 End: 08-29-[address] ARELY SEN Facility:[facility] Start: 08-29-2022 End: 08-30-[address] OLENA HOPE Facility:[facility] Start: 07-06-2022 Child [facility] medical examination [facility]rely Sen Other [facility] Other Start: 05-09-2022 End: 05-09-[address] OLENA HOPE Facility:[facility] Start: 10-12-2021 End: 10-12-[address] FRANK SUNG Facility:[facility] Start: 09-09-2019 Well child visit [facility] Other [facility] Other Procedures Date Procedure Procedure Detail Performing Clinician Start: 08-29-2024 RECURRENT VAGINITIS (HTRX) Tanja WHITE Work Phone: Start: 04-09-2024 Quick Strep (POC) Plan of Treatment Date Care Activity Detail Author Start: 01-12-2026 End: 01-12-2026 Patient encounter procedure 01/12/2026 10:00 AM EDT Office Visit [facility] [address] [place] [address] Stu Quinones MD [address] [place] [address] [facility] Start: 05-12-2025 Influenza vaccination [facility] Start: 01-13-2025 End: 01-13-2026 Thyrotropin [Units/volume] in Serum or Plasma TSH Lab Routine Anti-TPO antibodies present Expected: 01/13/2025 (Approximate), Expires: 01/13/2026 [facility] Comment on above: Expected: 01/13/2025 (Approximate), Expi res: 01/13/2026 Start: 01-13-2025 End: 01-13-2026 Thyroxine (T4) free [Mass/volume] in Serum or Plasma T4, free Lab Routine Anti-TPO antibodies present Expected: 01/13/2025 (Approximate), Expires: 01/13/2026 [facility] Comment on above: Expected: 01/13/2025 (Approximate), Expi res: 01/13/2026 Start: 01-13-2025 End: 01-13-2026 Triiodothyronine (T3) Free [Mass/volume] in Serum or Plasma T3, free Lab Routine Anti-TPO antibodies present Expected: 01/13/2025 (Approximate), Expires: 01/13/2026 [facility] Work Phone: Comment on above: Expected: 01/13/2025 (Approximate), Expi res: 01/13/2026 Start: 01-13-2025 End: 01-13-2026 TTG IGA/IGG TRANSGLUTAMINASE ([facility]) TTG IGA/IGG TRANSGLUTAMINASE ([facility]) Lab Routine Anti-TPO antibodies present Expected: 01/13/2025 (Approximate), Expires: 01/13/2026 [facility] Comment on above: Expected: 01/13/2025 (Approximate), Expi res: 01/13/2026 Start: 01-13-2025 End: 01-13-2025 Patient encounter procedure 01/13/2025 9:30 AM EDT Office Visit [facility] [address] [place] [address] Stu Quinones MD [address] [place] [address] [facility] Start: 01-02-2025 End: 01-02-2025 Patient encounter procedure 01/02/2025 2:00 PM EDT Office Visit [facility] [address] [place] [id number] Tanja Vang PA [address] [place], [place] [id number] [facility] Start: 05-12-2024 Influenza vaccination Influenza Vaccine (#1) [facility] Start: 12-11-2023 Patient referral [facility] Work Phone: CHLAMYDIA TRACHOMATI S (GENITO/STI) CHLAMYDIA TRACHOMATIS (GENITO/STI) Lab Routine Exposure to STD Ordered: 08/29/2024 [facility] Comment on above: Ordered: 08/29/2024 CHLAMYDIA TRACHOMATI S (GENITO/STI) CHLAMYDIA TRACHOMATIS (GENITO/STI) Lab Routine STD exposure Vaginal itching Ordered: 05/21/2025 [facility] Comment on above: Ordered: 05/21/2025 Cytology Cervical or vaginal smear or scraping study Pap Smear Pathology and Cytology Routine Well woman exam with routine gynecological exam Ordered: 05/21/2025 [facility] Work Phone: Comment on above: Ordered: 05/21/2025 Neisseria gonorrhoea e DNA [Presence] in Unspecified specimen by CELE with probe detection Neisseria gonorrhea DNA probe, direct Lab Routine Exposure to STD Ordered: 08/29/2024 [facility] Comment on above: Ordered: 08/29/2024 Neisseria gonorrhoea e DNA [Presence] in Unspecified specimen by CELE with probe detection Neisseria gonorrhea DNA probe, direct Lab Routine STD exposure Vaginal itching Ordered: 05/21/2025 [facility] Comment on above: Ordered: 05/21/2025 Patient referral [facility] Work Phone: SURESWAB(R) ADVANCED VAGINITIS PLUS, TMA SURESWAB(R) ADVANCED VAGINITIS PLUS, TMA Pathology and Cytology Routine Vaginal discharge Ordered: 08/29/2024 [facility] Work Phone: Comment on above: Ordered: 08/29/2024 SURESWAB(R) ADVANCED VAGINITIS PLUS, TMA SURESWAB(R) ADVANCED VAGINITIS PLUS, TMA Pathology and Cytology Routine STD exposure Vaginal itching Ordered: 05/21/2025 [facility] Comment on above: Ordered: 05/21/2025 [facility] Immunizations Immunization Date Immunization Notes Care Provider Inderjit gonzalez 03-24-2020 meningococcal oligosaccharide (groups A, C, Y and W-135) diphtheria toxoid conjugate vaccine (MCV4O) Arely Sen Other [facility] 12-02-2015 hepatitis A vaccine, pediatric/adolescent dosage, 2 dose schedule Stu Quinones MD Work Phone: [facility] 03-26-2015 hepatitis A vaccine, pediatric/adolescent dosage, 2 dose schedule Stu Quinones MD Work Phone: [facility] 03-26-2015 meningococcal oligosaccharide (groups A, C, Y and W-135) diphtheria toxoid conjugate vaccine (MCV4O) Stu Quinones MD Work Phone: [facility] 03-26-2015 tetanus toxoid, redu peter diphtheria toxoid, and acellular pertussis vaccine, adsorbed Stu Quinnoes MD Work Phone: [facility] 03-10-2014 haemophilus influenz ae type b vaccine, PRP-T conjugate Stu Quinones MD Work Phone: [facility] 08-13-2009 novel Influenza-H1N1 -09, live virus for nasal administration Stu Quinones MD Work Phone: [facility] 12-27-2007 diphtheria, tetanus toxoids and acellular pertussis vaccine, unspecified formulation Stu Quinones MD Work Phone: [facility] 12-27-2007 measles, mumps and rubella virus vaccine Stu Quinones MD Work Phone: [facility] 12-27-2007 poliovirus vaccine, inactivated Stu Quinones MD Work Phone: [facility] 12-27-2007 varicella virus vaccine Samm Quinones MD Work Phone: [facility] 06-10-2004 diphtheria, tetanus toxoids and acellular pertussis vaccine, unspecified formulation Stu Quinones MD Work Phone: [facility] 06-10-2004 pneumococcal Conjuga te, unspecified formulation Stu Quinones MD Work Phone: [facility] 01-08-2004 measles, mumps and rubella virus vaccine Stu Quinones MD Work Phone: [facility] 01-08-2004 varicella virus vaccine Samm Quinones MD Work Phone: [facility] 06-23-2003 diphtheria, tetanus toxoids and acellular pertussis vaccine, unspecified formulation Stu Quinones MD Work Phone: [facility] 06-23-2003 haemophilus influenz ae type b conjugate and Hepatitis B vaccine Stu Quinones MD Work Phone: [facility] 06-23-2003 pneumococcal conjuga te vaccine, 7 valent Stu Quinones MD Work Phone: [facility] 04-29-2003 diphtheria, tetanus toxoids and acellular pertussis vaccine, unspecified formulation Stu Quinones MD Work Phone: [facility] 04-29-2003 haemophilus influenz ae type b vaccine, HbOC conjugate Stu Quinones MD Work Phone: [facility] 04-29-2003 pneumococcal conjuga te vaccine, 7 valent Stu Quinones MD Work Phone: [facility] 04-29-2003 poliovirus vaccine, inactivated Stu Quinones MD Work Phone: [facility] 02-24-2003 DTaP-hepatitis B and poliovirus vaccine Stu Quinones MD Work Phone: [facility] 02-24-2003 haemophilus influenz ae type b vaccine, HbOC conjugate Stu Quinones MD Work Phone: [facility] 02-24-2003 pneumococcal conjuga te vaccine, 7 valent Stu Quinones MD Work Phone: [facility] 2002 hepatitis B vaccine, pediatric or pediatric/adolescent dosage Stu Quinones MD Work Phone: [facility] Healthcare Payers Date Payer Category Payer Private Health Insurance [employer] [id number] 2002 Unknown [id number] 2002 Unknown [id number] 2002 Unknown [id number] 2002 Unknown [id number] 2002 Unknown [id number] 2002 Unknown [id number] 2002 Unknown [id number] 1959 Unknown [id number] Self-pay Self Pay [id number] Social History Date Type Detail Facility Unknown if ever smoked [facility] Other Start: 08-14-2023 End: 10-31-2024 Sex Assigned At [facility] [employer] Other Start: 08-07-2023 End: 08-14-2023 Tobacco smoking status NHIS Never smoked tobacco (finding) [facility] Start: 2002 Sex Assigned At Female [facility] Start: 08-14-2023 Tobacco use and exposure Smokeless tobacco non-user [facility] Start: 12-28-2023 End: 05-21-2025 Alcoholic beverage intake Lifetime non-drinker (finding) [facility] Start: 08-14-2023 End: 10-31-2024 History of Social function [facility] Start: 08-29-2023 Gender identity Identifies as female gender (finding) [facility] Start: 08-29-2023 Sexual orientation Bisexual (finding) [facility] Clinical Notes 02-13-2023 to 05-21-2025 CINDY Simon - 05/21/2025 10:00 AM Geni Quinones MD - 01/13/2025 9:30 AM CINDY Diallo - 08/29/2024 1:30 PM EST Note Date & Type Note Facility 05-21-2025 History of Presen t illness Narrative Reason for Appointment: Patient ID: Alondra Ruiz [...] 30 MG DOSE FOR TOTAL 35 MG ARIPiprazole [...] nursing note reviewed. Exam conducted with a refrigeration lead present. Vitals: Estimated body mass index is 33.05 kg/m as calculated from the following: Height as [...] with those once we have them. Patient can also view results via [employer]. I reinforced importance of condom use for [...] control at this time. We will send jolessa to patients pharmacy. Changing BC due to bleeding and PMDD. We will try on Jolessa Follow Up: Patient is to return to our office in one year for annual exam unless needed otherwise. Documented by CINDY Simon on behalf of: Franca Lynn NP documented in this encounter [facility] 01-13-2025 History of Presen t illness Narrative Alondra Ruiz is a 24 y.o. female Stu Quinones MD presents with chief complaint of Thyroid Problem and Follow-up HPI: History of Present Illness The patient is a 24-year-old female who presents for follow-up of thyroid since she has positive thyroid antibodies. She has not undergone any recent blood work. She has expressed interest in being tested for celiac disease. She reports experiencing constipation and occasional nausea, symptoms that have been persistent throughout her life. She is currently on Abilify and lamotrigine, prescribed by her psychiatrist. FAMILY HISTORY No family history of celiac disease. HPI 05:2023 New patient sent from [facility] for abnormal thyroid antibodies. TPO greater than 600. Lab done in 11/2023, free T4 0.96 (0.76-1.4) and TSH 3.913. TG antibody less than 1. She has weight gain. Body mass index 38. No stretch milli in her abdomen. She is overweight since her kids and she is on lamotrigine with her psychiatrist. SUBJECTIVE: MEDICATIONS: Current Outpatient Medications Medication Instructions amphetamine-dextroamphetamine (Adderall) 10 MG tablet 10 mg, Daily ARIPiprazole (ABILIFY) 2 mg, Nightly busPIRone (BUSPAR) 5 mg, 3 times daily cetirizine (ZYRTEC) 10 mg, Nightly Estarylla 0.25-35 MG-MCG tablet 1 tablet, Oral, Daily lamoTRIgine (LaMICtal) 200 MG tablet 1 tablet, Daily lisdexamfetamine (VYVANSE) 40 mg, Every morning ALLERGIES: No Known Allergies Past Medical History: Diagnosis Date ADHD (attention deficit hyperactivity disorder) (CMS/HCC) Anxiety and depression (CMS/HCC) Anxiety state (CMS/HCC) BMI 38.0-38.9,adult Depression (CMS/HCC) Dizziness Elevated glucose Encounter for control Fatigue Gallo's disease (CMS/HCC) Hyperhidrosis Menorrhagia Otitis externa, left Past Surgical History: Procedure Laterality Date ADENOIDECTOMY TONSILLECTOMY REVIEW OF SYMPTOMS: 14 POINT OF SYSTEM REVIEWED AND NEGATIVE OBJECTIVE: Visit Vitals BP 110/84 Pulse 88 Resp 18 Ht 5' 6 Wt 212 lb SpO2 98% BMI 34.22 kg/m Smoking Status Never BSA 2.12 m Physical Exam Constitutional: Appearance: Normal appearance. She is normal weight. HENT: Head: Normocephalic and atraumatic. Right Ear: External ear normal. Nose: Nose normal. Mouth/Throat: Pharynx: Oropharynx is clear. Eyes: Extraocular Movements: Extraocular movements intact. Pupils: Pupils are equal, round, and reactive to light. Cardiovascular: Rate and Rhythm: Normal rate and regular rhythm. Pulmonary: Effort: Pulmonary effort is normal. Abdominal: General: Abdomen is flat. Palpations: Abdomen is soft. Musculoskeletal: General: Normal range of motion. Skin: General: Skin is warm. Neurological: General: No focal deficit present. Mental Status: She is alert. Psychiatric: Mood and Affect: Mood normal. Behavior: Behavior normal. ASSESSMENT AND PLAN: Assessment/Plan Diagnoses and all orders for this visit: Anti-TPO antibodies present - T3, free; Future - T4, free; Future - TSH; Future - TTG IGA/IGG TRANSGLUTAMINASE ([facility]); Future Vitamin D deficiency Encounter for dietary consultation Class 1 obesity due to excess calories without serious comorbidity with body mass index (BMI) of 34.0 to 34.9 in adult Assessment & Plan 1. Positive thyroid antibodies. She has positive thyroid antibodies but her previous thyroid labs were normal. New blood work will be ordered to reassess her thyroid function. She will be contacted if any abnormalities are found that require intervention. 2. Suspected celiac disease. She reports a history of constipation and occasional nausea. A lab order will be placed to check for celiac disease. 3. Medication management. She is currently taking Abilify and lamotrigine, prescribed by her psychiatrist. Follow-up The patient will follow up in 1 year. documented in this encounter [facility] 08-29-2024 History of Presen t illness Narrative Reason for Appointment: Patient ID: Alondra Ruiz is a 23 y.o. female who presents for STI Screening Patient presents today for Acute Visit. MEDICATIONS Current Outpatient Medications Medication Instructions ARIPiprazole (ABILIFY) 2 mg, Nightly cetirizine (ZYRTEC) 10 mg, Nightly Estarylla 0.25-35 MG-MCG tablet 1 tablet, Oral, Daily lamoTRIgine (LaMICtal) 200 MG tablet 1 tablet, Daily lisdexamfetamine (VYVANSE) 40 mg, Every morning ALLERGIES No Known Allergies PROBLEMS Active Ambulatory Problems Diagnosis Date Noted No Active Ambulatory Problems Resolved Ambulatory Problems Diagnosis Date Noted No Resolved Ambulatory Problems Past Medical History: Diagnosis Date ADHD (attention deficit hyperactivity disorder) (CMS/HCC) Anxiety and depression (CMS/HCC) Anxiety state (CMS/HCC) BMI 38.0-38.9,adult Depression (CMS/HCC) Dizziness Elevated glucose Encounter for control Fatigue Gallo's disease (CMS/HCC) Hyperhidrosis Menorrhagia Otitis externa, left HISTORY PAST MEDICAL HISTORY SOCIAL HISTORY Past Medical History: Diagnosis Date ADHD (attention deficit hyperactivity disorder) (CMS/HCC) Anxiety and depression (CMS/HCC) Anxiety state (CMS/HCC) BMI 38.0-38.9,adult Depression (CMS/HCC) Dizziness Elevated glucose Encounter for control Fatigue Gallo's disease ([facility]) Hyperhidrosis Menorrhagia Otitis externa, left Social History [...] Exam Constitutional: Appearance: Normal appearance. She is normal weight. HENT: Head: Normocephalic. Cardiovascular: Rate and Rhythm: Normal rate. Pulses: Normal pulses. Pulmonary: Effort: Pulmonary effort is normal. Breath sounds: Normal breath sounds. Abdominal: Palpations: Abdomen is soft. Musculoskeletal: General: Normal range of motion. Neurological: General: No focal deficit present. Mental Status: She is alert and oriented to person, place, and time. Psychiatric: Mood and Affect: Mood normal. Behavior: Behavior normal. Thought Content: Thought content normal. Judgment: Judgment normal. Vitals and nursing note reviewed. Vitals: Estimated body mass index is 33.15 kg/m as calculated from the following: Height as of 12/28/23: 5' 6 . Weight as of this encounter: 205 lb 6.4 oz. BP: 120/80 Patient's last menstrual period was 08/15/2024. ASSESSMENT & PLAN ICD-10-CM 1. Exposure to STD Z20.2 CHLAMYDIA TRACHOMATIS (GENITO/STI) Neisseria gonorrhea DNA probe, direct 2. Vaginal discharge N89.8 SURESWAB(R) ADVANCED VAGINITIS PLUS, TMA Patient presented to have vaginal cultures obtained due to possible exposure. Pt denies any symptoms at this time Documented by CINDY Simon on behalf of: CINDY Simon documented in this encounter [facility] 10-17-2023 Evaluation note Encounter Date Diagnosis Assessment Notes Oct, Anxiety and depression (ICD-10 - F41.9) [facility] 02-05-2024 Evaluation note* Encounter Date Diagnosis Assessment Notes Treatment Notes Treatment Clinical Notes Oct, Anxiety and depression (ICD-10 - F41.9) [facility] Other 01-03-2024 Evaluation note* Encounter Date Diagnosis Assessment Notes Treatment Notes Treatment Clinical Notes Sep, Anxiety and depression (ICD-10 - F41.9) [facility] 11-28-2023 Evaluation note* Encounter Date Diagnosis Assessment Notes Treatment Notes Treatment Clinical Notes Jul, Bipolar disease, chronic (ICD-10 - F31.9) [facility] 11-27-2023 Evaluation note* Encounter Date Diagnosis [...] mood issues. Call if any adverse effects. [facility] 08-28-2023 Evaluation note* Encounter Date Diagnosis [...] bedtime and healthy sleep habits. D/c adipex. [facility] Other 08-07-2023 Evaluation note* Encounter Date Diagnosis [...] weight loss since d/c latuda as well. [facility] Other 07-31-2023 Evaluation note* Encounter Date Diagnosis Assessment Notes Treatment Notes Treatment Clinical Notes Mar, Morbid (severe) obesity due to excess calories (ICD-10 - E66.01) [facility] Other 07-03-2023 Evaluation note* Encounter Date Diagnosis [...] followup if issues related to stopping that. [facility] Other 06-05-2023 Evaluation note* Encounter Date Diagnosis Assessment Notes Treatment Notes Treatment Clinical Notes Feb, Bipolar disease, chronic (ICD-10 - F31.9) Refilled present meds and referal to [facility] services. Feb, PTSD (post-traumatic stress disorder) (ICD-10 [...] index [BMI] 45.0-49.9, adult (ICD-10 - Z68.42) [facility] Other Chief complaint+Reason for visit Narrative* Chief Complaint Sore throat, nausea Reason for Visit Contact with and (fuentes spected) exposure to covid-19 Sore throat [facility] Work Phone: Evaluation [facility]No [facility] Other Evaluation note* Diagnosis Onset Date Resolution Status Fatigue acute Anxiety and depression acute Bipolar disease, chronic acu te [facility] Work Phone: Evaluation note* Diagnosis Onset Date Resolution Status Contact with and (suspected) exposure to covid-19 noneactive Sore throat noneactive [facility] Work Phone: Evaluation note* Diagnosis Exposure to STD Vaginal discharge Leukorrhea, not specified as infective [facility] Diagnosis Anti-TPO antibodies present- Primary Vitamin D deficiency Encounter for dietary consultation Class 1 obesity due to excess calories without serious comorbidity with body mass index (BMI) of 34.0 to 34.9 in adult [facility] Diagnosis Well woman exam with routine gynecological exam Routine gynecological examination STD exposure Vaginal itching Pruritus of genital organs [facility] N[facility]ative - Reported* Type Description Date Medical History Fatigue Medical History Elevated glucose Medical History Anxiety and depression Surgical History TONSILLECTOMY AND ADENOIDECTOMY Hospitalization History SEE SURGICAL HX [employer] [facility] Other Hospital Discharge instructionsAmbulatory Orders* Referral to Psychiatry Time Frame: 12/11/23, Location: None Selected [facility] Work Phone: Summary Purpose Family History No Family History Records FoundNo Family History Records FoundNo Family History Records FoundNo Family History Records Found Advance Directives Advance Directive Response Recorded Date/ Time Advance Directives No December 26, 2 021 9:13pm Reason for Referral Reason Vashti Brambila [facility] - previously seeing office in [place]. Presently stable on meds. Bipolar depression and PTSD. Diagnosis 1 Bipolar disease, chr onic (F31.9) Referral Organization [facility] Referring Provider First Name Arely Referring Provider Last Name Francy Referring Provider Specialty Family [facility] Referred Organization [facility] ice Referred Address [address] [place], [place],[address] Referred Provider Specialty Psychiatry Referral Priority Routine Chief Complaint and Reason for Visit Chief Complaint Check Up changes in medication Reason for Visit Fatigue Anxiety and depression Bipolar disease, chronic Additional Source Comments INFORMATION SOURCE (unrecogn ized section and content) DATE CREATED AUTHOR 09/26/2021 [facility] DATE CREATED AUTHOR AUTHOR'S ORGANIZ ATION 09/02/2022 [facility] DATE CREATED AUTHOR AUTHOR'S ORGANIZ ATION 01/16/2025 [facility] EPIC DATE CREATED AUTHOR AUTHOR'S ORGANIZ ATION 05/02/2025 [facility] REASON FOR VISIT (unrecogniz ed section and content) Reason Comments STI Screening Reason Comments Thyroid Problem Follow-up Reason Comments [facility] Visit Care Teams (unrecognized sec tion and content) [...] December 11, 2023 End: December 11, 2023 Team Status: Inactive Member Role Status Dates Arely Sen MD Primary Care Provider Active Start: April 09, 2024 End: April 09, 2024 Lara Du APRN Attending Provider Active Start: April 09, 2024 End: April 09, 2024 Record Changer Tester Relationship Specialty Start Date End Date Arely Sen MD [address] [place] [id number] PCP - General Family Medicine 08/29/23 Record Changer Tester Relationship Specialty Start Date End Date Arely Sen MD [address] [place] [address] PCP - General Family Medicine 08/29/23 Record Changer Tester Relationship Specialty Start Date End Date Arely Sen MD [facility] [place] [address] PCP - General Family Medicine 08/29/23 Record Changer Tester Relationship Specialty Start Date End Date Arely Sen MD PCP - General Family Medicine 08/29/23 Record Changer Tester Relationship Specialty Start Date End Date Arely Sen MD PCP - General Family Medicine 08/29/23 Record Changer Tester Relationship Specialty Start Date End Date Arely Sen MD PCP - General Family Medicine 08/29/23 Stu Quinones MD [address] [place] [address] PCP - Medical [employer] 09/11/13 09/10/99 Goals (unrecognized section and content) Goals may [...] BE BASED ON THE PRIMARY CLINICAL RECORDS. [facility]. provides no warranty or guarantee of the accuracy or completeness of information in this document.
[2025-05-23 15:08] LABS: Age Gdln ACOG Testing Note (.); IGP, rfx Aptima HPV ASCU Note (.)
== END 2025-05-21 15:03 | disposition home or self-care (01) ==
LOC: LAB 15:02
PROVIDERS: PCP Family Medicine; Visit Provider Nurse Practitioner Family
DX: Z01.419 Encounter for gynecological examination (general) (routine) without abnormal findings (principal)
CPT/HCPCS: 88175